=== PATIENT | female | born 1970 | race Caucasian/White ===

== ENCOUNTER 2019-10-10 11:58 | Inpatient (IN) | payer MEDICAID ==
[~2019-10-10] VITALS: Ht 165.1 cm; Wt 62.1 kg
[2019-10-10] MEDS ORDERED: LORAZEPAM 2MG/ML CPJ IV ONE (12:30)
[2019-10-10 13:46] LABS: BASOPHILS % 0.8 % (0.0-2.0); EOSINOPHILS % 0.3 % (0.0-5.0); HEMATOCRIT. 44.2 % (36.0-48.0); HEMOGLOBIN. 15.1 g/dL (12.0-16.0); LYMPHOCYTES % 19.3 % (20.0-50.0); MEAN CORPUSCULAR HEMOGLOBIN 29.7 pg (28.0-32.0); MEAN CORPUSCULAR VOLUME 86.7 fL (81.0-99.0); MEAN PLATELET VOLUME 7.5 fl (7.4-10.4); MONOCYTES % 8.6 % (2.0-8.0); PLATELET 425 x1000/uL (130-400); RED BLOOD CELL COUNT 5.09 mill/uL (4.2-5.4); RED CELL DISTRIBUTION WIDTH 14.6 % (11.6-14.6)
[2019-10-10 13:54] LABS: CHLORIDE 99 mEq/L (98-107)
[2019-10-10 13:58] LABS: ETHANOL BLOOD < 10 mg/dL
[2019-10-10 14:06] LABS: CARBAMAZEPINE < 0.5 ug/mL (4-12); PHENOBARBITAL < 2.1 ug/mL (15.0-40.0); VALPROIC ACID < 3.0 ug/mL (50-100)
[2019-10-10] MEDS ORDERED: CLONIDINE 0.1MG TABLET PO PRN (14:15)
[2019-10-10] MEDS ORDERED: ONDANSETRON HCL 4MG/2ML INJ IV PRN (14:15)
[2019-10-10] MEDS ORDERED: IPRATROPIUM/ALBUTEROL 0.5-3(2.5)MG/3ML NEB HHN PRN (14:15)
[2019-10-10 14:35] LABS: PHOSPHORUS 3.9 mg/dL (2.5-4.9)
[2019-10-10] MEDS ORDERED: LEVETIRACETAM 500MG PREMIX 100 ML IV NR (15:00)
[2019-10-10] MEDS: ENOXAPARIN 30MG/0.3ML SYR SUBCUT SCH (15:24)
[2019-10-10 17:26] LABS: CLARITY URINE CLEAR (CLEAR); COLOR URINE DARK YELLOW (YELLOW); KETONES URINE TRACE (NEGATIVE); LEUKOCYTE ESTERASE URINE TRACE (NEGATIVE); NITRITE URINE NEGATIVE (NEGATIVE); OCCULT BLOOD URINE NEGATIVE (NEGATIVE); PH URINE 5.5 (4.5-8.0); PROTEIN URINE 1+ (NEGATIVE); SPECIFIC GRAVITY URINE 1.021 (1.005-1.030)
[2019-10-10 18:19] LABS: *AMPHETAMINES SCREEN URINE NEGATIVE (NEGATIVE); *BARBITURATES SCREEN URINE NEGATIVE (NEGATIVE); *BENZODIAZEPINES SCREEN URINE PRESUMTIVE POSITIVE (NEGATIVE)
[2019-10-10 18:20] LABS: *COCAINE SCREEN URINE NEGATIVE (NEGATIVE); CANNABINOID URINE SCREEN NEGATIVE (NEGATIVE); METHADONE URINE SCREEN NEGATIVE (NEGATIVE); OPIATES URINE SCREEN NEGATIVE (NEGATIVE)
[2019-10-10 18:21] LABS: PHENCYCLIDINE URINE SCREEN NEGATIVE (NEGATIVE)
[2019-10-10 22:15] VITALS: BP 117/64
[2019-10-10 22:59] VITALS: BP 117/64
[2019-10-11] VITALS (29 sets, daily range): BP systolic 37–152; BP diastolic 13–103
[2019-10-11] MEDS: BLOOD SUGAR DIAGNOSTIC STRIP TEST SCH ×4 (05:59→21:12)
[2019-10-11] MEDS ORDERED: DEXTROSE 50% WATER 50ML SYRINGE IV PRN (06:00)
[2019-10-11] MEDS: INSULIN LISPRO 100 UNITS/ML SUBCUT SCH ×4 (06:20→21:00)
[2019-10-11 08:02] LABS: BASOPHILS % 0.6 % (0.0-2.0); EOSINOPHILS % 0.1 % (0.0-5.0); HEMATOCRIT. 41.1 % (36.0-48.0); LYMPHOCYTES % 17.2 % (20.0-50.0); MEAN CORPUSCULAR HEMOGLOBIN 29.4 pg (28.0-32.0); MEAN CORPUSCULAR VOLUME 86.4 fL (81.0-99.0); MEAN PLATELET VOLUME 7.7 fl (7.4-10.4); MONOCYTES % 10.1 % (2.0-8.0); PLATELET 461 x1000/uL (130-400); RED BLOOD CELL COUNT 4.76 mill/uL (4.2-5.4); RED CELL DISTRIBUTION WIDTH 14.8 % (11.6-14.6)
[2019-10-11] MEDS: ENOXAPARIN 30MG/0.3ML SYR SUBCUT SCH (14:24)
[2019-10-11] MEDS: LEVETIRACETAM 500MG PREMIX 100 ML IV SCH (16:09)
[2019-10-11] MEDS ORDERED: PHENYTOIN SODIUM 500 MG in SODIUM CHLORIDE 0.9% 50 ML IV NR (17:30)
[2019-10-11] MEDS: DEXT 5%/LACTATED RINGERS 1,000 ML IV SCH (18:27)
[2019-10-11] MEDS: LORAZEPAM 2MG/ML CPJ IV PRN ×2 (18:27→21:53)
[2019-10-11] MEDS ORDERED: LEVETIRACETAM 500MG PREMIX 100 ML IV SCH (21:00)
[2019-10-11] MEDS: PHENYTOIN SODIUM 100MG/2ML VIAL IV SCH (21:54)
[2019-10-12] VITALS (94 sets, daily range): BP systolic 77–148; BP diastolic 17–120
[2019-10-12] MEDS: LEVETIRACETAM 500MG PREMIX 100 ML IV SCH ×2 (02:12→08:42)
[2019-10-12 05:48] LABS: BASOPHILS % 0.4 % (0.0-2.0); HEMATOCRIT. 39.4 % (36.0-48.0); HEMOGLOBIN. 13.3 g/dL (12.0-16.0); LYMPHOCYTES % 14.5 % (20.0-50.0); MEAN CORPUSCULAR HEMOGLOBIN 29.5 pg (28.0-32.0); MEAN CORPUSCULAR VOLUME 87.6 fL (81.0-99.0); MEAN PLATELET VOLUME 7.4 fl (7.4-10.4); MONOCYTES % 9.7 % (2.0-8.0); NEUTROPHILS % 75.4 % (40.0-76.0); PLATELET 369 x1000/uL (130-400); RED CELL DISTRIBUTION WIDTH 14.6 % (11.6-14.6)
[2019-10-12 05:53] LABS: CHLORIDE 105 mEq/L (98-107)
[2019-10-12] MEDS: BLOOD SUGAR DIAGNOSTIC STRIP TEST SCH ×4 (06:38→21:19)
[2019-10-12] MEDS: INSULIN LISPRO 100 UNITS/ML SUBCUT SCH ×4 (06:38→21:00)
[2019-10-12] MEDS: PHENYTOIN SODIUM 100MG/2ML VIAL IV SCH ×3 (06:59→21:23)
[2019-10-12] MEDS: DEXT 5%/LACTATED RINGERS 1,000 ML IV SCH ×2 (09:10→21:23)
[2019-10-12] MEDS ORDERED: PIPERACILLIN/TAZOBACTAM 3.375 G in DEXT 5% WATER 100 ML IV SCH (15:00)
[2019-10-12 15:14] LABS: CLARITY URINE TURBID (CLEAR); COLOR URINE DARK YELLOW (YELLOW); KETONES URINE NEGATIVE (NEGATIVE); LEUKOCYTE ESTERASE URINE 3+ (NEGATIVE); NITRITE URINE POSITIVE (NEGATIVE); OCCULT BLOOD URINE 2+ (NEGATIVE); PH URINE 8.5 (4.5-8.0); PROTEIN URINE 2+ (NEGATIVE); SPECIFIC GRAVITY URINE 1.019 (1.005-1.030)
[2019-10-12 16:14] LABS: GLUCOSE CSF 58 mg/dL (41-75)
[2019-10-12] MEDS: ENOXAPARIN 30MG/0.3ML SYR SUBCUT SCH (16:49)
[2019-10-12] MEDS ORDERED: CEFTRIAXONE 2 G in DEXTROSE 5% WATER 50 ML IV SCH (17:00)
[2019-10-12] MEDS ORDERED: SODIUM CHLORIDE 0.9% 250 ML IV NR (18:00)
[2019-10-12] MEDS: VANCOMYCIN 1 G PREMIX 200 ML IV SCH (18:48)
[2019-10-12] MEDS: IPRATROPIUM/ALBUTEROL 0.5-3(2.5)MG/3ML NEB HHN SCH (20:21)
[2019-10-12] MEDS ORDERED: CEFTRIAXONE 2 G PREMIX 50 ML IV SCH (21:00)
[2019-10-12] MEDS ORDERED: LEVETIRACETAM 1,000 MG in SODIUM CHLORIDE 0.9% 100 ML IV SCH (21:00)
[2019-10-12] MEDS: LEVETIRACETAM 1,000 MG in SODIUM CHLORIDE 0.9% 100 ML IV SCH (23:43)
[2019-10-13] VITALS (70 sets, daily range): BP systolic 48–145; BP diastolic 17–109
[2019-10-13] MEDS: IPRATROPIUM/ALBUTEROL 0.5-3(2.5)MG/3ML NEB HHN SCH ×4 (02:00→20:09)
[2019-10-13 05:39] LABS: BASOPHILS % 0.2 % (0.0-2.0); HEMATOCRIT. 38.2 % (36.0-48.0); HEMOGLOBIN. 12.7 g/dL (12.0-16.0); LYMPHOCYTES % 7.9 % (20.0-50.0); MEAN CORPUSCULAR HEMOGLOBIN 29.3 pg (28.0-32.0); MEAN PLATELET VOLUME 7.8 fl (7.4-10.4); MONOCYTES % 7.1 % (2.0-8.0); NEUTROPHILS % 84.8 % (40.0-76.0); PLATELET 371 x1000/uL (130-400); RED BLOOD CELL COUNT 4.34 mill/uL (4.2-5.4); RED CELL DISTRIBUTION WIDTH 14.7 % (11.6-14.6)
[2019-10-13 05:49] LABS: CHLORIDE 108 mEq/L (98-107)
[2019-10-13] MEDS: VANCOMYCIN 1 G PREMIX 200 ML IV SCH (05:51)
[2019-10-13] MEDS: PHENYTOIN SODIUM 100MG/2ML VIAL IV SCH ×3 (05:51→21:17)
[2019-10-13] MEDS: INSULIN LISPRO 100 UNITS/ML SUBCUT SCH (06:17)
[2019-10-13] MEDS: BLOOD SUGAR DIAGNOSTIC STRIP TEST SCH (06:17)
[2019-10-13] MEDS: LORAZEPAM 2MG/ML CPJ IV PRN ×2 (07:49→21:35)
[2019-10-13] MEDS: LEVETIRACETAM 1,000 MG in SODIUM CHLORIDE 0.9% 100 ML IV SCH (09:36)
[2019-10-13] MEDS: PANTOPRAZOLE SODIUM 40 MG/VIAL IV SCH (09:40)
[2019-10-13] MEDS ORDERED: LIDOCAINE HCL 1% 20ML VIAL (Pyxis) INJ ONE (10:26)
[2019-10-13 11:21] LABS: INR 1.1; PROTHROMBIN TIME 11.9 sec (9.6-11.0)
[2019-10-13] MEDS ORDERED: KCL 20MEQ/100ML PREMIX 100 ML IV SCH (12:00)
[2019-10-13] MEDS: CEFTRIAXONE 2 G in DEXTROSE 5% WATER 50 ML IV SCH ×2 (12:19→22:45)
[2019-10-13] MEDS: DEXT 5%/LACTATED RINGERS 1,000 ML IV SCH ×2 (12:20→18:30)
[2019-10-13] MEDS: VANCOMYCIN 750 MG PREMIX 150 ML IV SCH ×2 (13:50→21:17)
[2019-10-13] MEDS ORDERED: PHENYTOIN SODIUM 800 MG in SODIUM CHLORIDE 0.9% 100 ML IV SCH (15:30)
[2019-10-13] MEDS: LEVETIRACETAM 1,500 MG in SODIUM CHLORIDE 0.9% 100 ML IV SCH (20:19)
[2019-10-13] MEDS ORDERED: SODIUM CHLORIDE 0.9% 500 ML IV ONE ×2 (21:15→23:15)
[2019-10-14] VITALS (47 sets, daily range): BP systolic 67–143; BP diastolic 32–90
[2019-10-14] MEDS: IPRATROPIUM/ALBUTEROL 0.5-3(2.5)MG/3ML NEB HHN SCH ×3 (02:13→20:38)
[2019-10-14] MEDS: LORAZEPAM 2MG/ML CPJ IV PRN (02:22)
[2019-10-14] MEDS: VANCOMYCIN 750 MG PREMIX 150 ML IV SCH (05:21)
[2019-10-14] MEDS: PHENYTOIN SODIUM 100MG/2ML VIAL IV SCH ×2 (05:21→12:07)
[2019-10-14] MEDS ORDERED: SODIUM CHLORIDE 0.9% 1,000 ML IV NR (05:45)
[2019-10-14 05:51] LABS: INR 1.1; PROTHROMBIN TIME 12.3 sec (9.6-11.0)
[2019-10-14 05:54] LABS: CHLORIDE 114 mEq/L (98-107)
[2019-10-14] MEDS ORDERED: POTASSIUM CHLORIDE INJ 40 MEQ in DEXT 5% WATER 500 ML IV NR (06:00)
[2019-10-14 06:02] LABS: BASOPHILS % 0.5 % (0.0-2.0); EOSINOPHILS % 0.7 % (0.0-5.0); LYMPHOCYTES % 19.9 % (20.0-50.0); MEAN CORPUSCULAR HEMOGLOBIN 29.4 pg (28.0-32.0); MEAN CORPUSCULAR VOLUME 88.6 fL (81.0-99.0); MEAN PLATELET VOLUME 8.1 fl (7.4-10.4); MONOCYTES % 8.7 % (2.0-8.0); NEUTROPHILS % 70.2 % (40.0-76.0); PLATELET 309 x1000/uL (130-400); RED BLOOD CELL COUNT 3.63 mill/uL (4.2-5.4); RED CELL DISTRIBUTION WIDTH 14.7 % (11.6-14.6)
[2019-10-14 06:02] LABS: PHOSPHORUS 2.6 mg/dL (2.5-4.9)
[2019-10-14 07:05] LABS: HEMATOCRIT. 32.1 % (36.0-48.0); HEMOGLOBIN. 10.7 g/dL (12.0-16.0)
[2019-10-14] MEDS: PANTOPRAZOLE SODIUM 40 MG/VIAL IV SCH (08:10)
[2019-10-14] MEDS: LEVETIRACETAM 1,500 MG in SODIUM CHLORIDE 0.9% 100 ML IV SCH ×2 (08:10→21:14)
[2019-10-14] MEDS: DEXT 5%/LACTATED RINGERS 1,000 ML IV SCH ×2 (08:10→15:05)
[2019-10-14] MEDS ORDERED: LIDOCAINE HCL/EPINEPHRINE 1%-EPI 1:100,000 20 ML VIAL ONE (08:22)
[2019-10-14] MEDS ORDERED: BACITRACIN 50,000 UNITS/VIAL ONE (08:22)
[2019-10-14] MEDS ORDERED: THROMBIN (BOVINE) 5000 UNITS/VIAL TOP ONE (08:22)
[2019-10-14] MEDS ORDERED: ROCURONIUM BROMIDE 10MG/ML VIAL 5ML IV ONE ×2 (08:29→09:59)
[2019-10-14] MEDS ORDERED: PROPOFOL 200MG/20ML VIAL IV ONE (08:29)
[2019-10-14] MEDS ORDERED: FENTANYL CITRATE/PF 50MCG/ML 2ML VIAL ONE (08:29)
[2019-10-14] MEDS ORDERED: CEFAZOLIN SODIUM 1000MG/VIAL ONE (08:30)
[2019-10-14] MEDS ORDERED: SODIUM CHLORIDE 0.9% 10ML VIAL ONE (08:30)
[2019-10-14] MEDS ORDERED: LIDOCAINE HCL/PF 1% 10 MG/ML 5ML VIAL ONE (08:30)
[2019-10-14] MEDS ORDERED: CALCIUM CHLORIDE 1GM/10ML SYR IV ONE (08:42)
[2019-10-14] MEDS ORDERED: PHENYLEPHRINE HCL 10 MG/ML 1ML (IV VIAL) IV ONE (08:43)
[2019-10-14] MEDS ORDERED: GLYCOPYRROLATE 0.2 MG/ML 2ML VIAL ONE (10:20)
[2019-10-14] MEDS ORDERED: NEOSTIGMINE METHYLSULFATE 1MG/ML 10 ML VIAL ONE (10:20)
[2019-10-14] MEDS ORDERED: ONDANSETRON HCL 4MG/2ML INJ ONE (10:25)
[2019-10-14] MEDS: NICARDIPINE 100 MG in SODIUM CHLORIDE 0.9% 60 ML IV PRN (11:34)
[2019-10-14] MEDS: CEFTRIAXONE 2 G in DEXTROSE 5% WATER 50 ML IV SCH ×2 (11:36→22:58)
[2019-10-14] MEDS ORDERED: NALOXONE HCL 0.4 MG/ML 1ML VIAL IV NR ×2 (12:00)
[2019-10-14] MEDS ORDERED: NALOXONE HCL 0.4 MG/ML 1ML VIAL ONE (12:04)
[2019-10-14 12:11] LABS: BG BASE EXCESS -1.2 mmol/L (-2.0-2.0); BG CARBOXYHEMOGLOBIN 0.3 % (0.5-1.5); BG DEOXYHEMOGLOBIN 0.5 % (0.0-5.0); BG FRACTION INSPIRED OXYGEN 100; BG HCO3 ACT 28.7 mmol/L (22.0-26.0); BG METHEMOGLOBIN 0.4 % (0.0-1.5); BG OXYGEN SATURATION 99.5 % (92.0-98.5); BG OXYHEMOGLOBIN 98.8 % (94.0-97.0); BG PCO2 75.9 mmHg (35.0-45.0); BG PH 7.196 (7.350-7.450); BG PO2 442.4 mmHg (75.0-100.0); BG SAMPLE SITE RIGHT BRACHIAL; BG TOTAL HEMOGLOBIN 13.3 g/dL (12.0-18.0); BG VENT MODE AMBU BAG
[2019-10-14 13:02] LABS: BG BASE EXCESS 0.7 mmol/L (-2.0-2.0); BG CARBOXYHEMOGLOBIN 0.2 % (0.5-1.5); BG DEOXYHEMOGLOBIN 0.7 % (0.0-5.0); BG FRACTION INSPIRED OXYGEN 60; BG HCO3 ACT 27.6 mmol/L (22.0-26.0); BG METHEMOGLOBIN 0.5 % (0.0-1.5); BG OXYGEN SATURATION 99.3 % (92.0-98.5); BG OXYHEMOGLOBIN 98.6 % (94.0-97.0); BG PH 7.326 (7.350-7.450); BG PO2 217.5 mmHg (75.0-100.0); BG SAMPLE SITE RIGHT BRACHIAL; BG TOTAL HEMOGLOBIN 12.7 g/dL (12.0-18.0); BG VENT MODE MASK - SIMPLE
[2019-10-14] MEDS ORDERED: KCL 20MEQ/100ML PREMIX 100 ML IV NR (18:00)
[2019-10-14] MEDS: MORPHINE SULFATE 2 MG/ML CPJ (NOT FOR IM USE) IV PRN (21:24)
[2019-10-15] VITALS (95 sets, daily range): BP systolic -6–162; BP diastolic -8–102
[2019-10-15] MEDS: IPRATROPIUM/ALBUTEROL 0.5-3(2.5)MG/3ML NEB HHN SCH ×4 (02:30→20:57)
[2019-10-15] MEDS ORDERED: SODIUM CHLORIDE 0.9% 500 ML IV ONE (03:30)
[2019-10-15 05:47] LABS: CHLORIDE 110 mEq/L (98-107)
[2019-10-15 05:48] LABS: BASOPHILS % 0.7 % (0.0-2.0); EOSINOPHILS % 2.2 % (0.0-5.0); HEMATOCRIT. 34.2 % (36.0-48.0); HEMOGLOBIN. 11.5 g/dL (12.0-16.0); LYMPHOCYTES % 15.6 % (20.0-50.0); MEAN CORPUSCULAR HEMOGLOBIN 29.7 pg (28.0-32.0); MEAN CORPUSCULAR VOLUME 87.9 fL (81.0-99.0); MEAN PLATELET VOLUME 7.7 fl (7.4-10.4); MONOCYTES % 8.3 % (2.0-8.0); NEUTROPHILS % 73.2 % (40.0-76.0); PLATELET 361 x1000/uL (130-400); RED BLOOD CELL COUNT 3.89 mill/uL (4.2-5.4); RED CELL DISTRIBUTION WIDTH 14.7 % (11.6-14.6)
[2019-10-15 05:54] LABS: PHOSPHORUS 1.8 mg/dL (2.5-4.9)
[2019-10-15] MEDS ORDERED: SODIUM CHLORIDE 0.9% 500 ML IV SCH (08:30)
[2019-10-15] MEDS: MORPHINE SULFATE 2 MG/ML CPJ (NOT FOR IM USE) IV PRN ×3 (09:18→21:25)
[2019-10-15] MEDS: LEVETIRACETAM 1,500 MG in SODIUM CHLORIDE 0.9% 100 ML IV SCH ×2 (09:18→22:47)
[2019-10-15] MEDS: PANTOPRAZOLE SODIUM 40 MG/VIAL IV SCH (09:18)
[2019-10-15 10:10] LABS: *CREATININE RANDOM URINE 57.8 mg/dL (Not Estab.); MICROALBUMIN RANDOM URINE 61.9 ug/mL (Not Estab.)
[2019-10-15] MEDS: DEXT 5%/LACTATED RINGERS 1,000 ML IV SCH ×3 (12:31→21:24)
[2019-10-15] MEDS: CEFTRIAXONE 2 G in DEXTROSE 5% WATER 50 ML IV SCH ×2 (12:31→22:48)
[2019-10-15] MEDS ORDERED: POTASSIUM CHLORIDE INJ 40 MEQ in DEXT 5% WATER 250 ML IV ONE (13:30)
[2019-10-15] MEDS: PHENYTOIN SODIUM 100MG/2ML VIAL IV SCH ×2 (14:20→21:24)
[2019-10-16] VITALS (81 sets, daily range): BP systolic -7–156; BP diastolic -11–112
[2019-10-16] MEDS: IPRATROPIUM/ALBUTEROL 0.5-3(2.5)MG/3ML NEB HHN SCH ×4 (00:45→20:35)
[2019-10-16] MEDS: MORPHINE SULFATE 2 MG/ML CPJ (NOT FOR IM USE) IV PRN ×5 (01:22→21:00)
[2019-10-16 06:04] LABS: CHLORIDE 110 mEq/L (98-107)
[2019-10-16] MEDS: DEXT 5%/LACTATED RINGERS 1,000 ML IV SCH ×2 (06:05→16:51)
[2019-10-16] MEDS: PHENYTOIN SODIUM 100MG/2ML VIAL IV SCH ×3 (06:05→21:00)
[2019-10-16 06:27] LABS: BASOPHILS % 0.7 % (0.0-2.0); EOSINOPHILS % 5.2 % (0.0-5.0); HEMOGLOBIN. 11.6 g/dL (12.0-16.0); LYMPHOCYTES % 21.8 % (20.0-50.0); MEAN CORPUSCULAR VOLUME 87.6 fL (81.0-99.0); MEAN PLATELET VOLUME 8.4 fl (7.4-10.4); NEUTROPHILS % 63.3 % (40.0-76.0); PLATELET 350 x1000/uL (130-400); RED BLOOD CELL COUNT 3.87 mill/uL (4.2-5.4); RED CELL DISTRIBUTION WIDTH 14.9 % (11.6-14.6)
[2019-10-16] MEDS: PANTOPRAZOLE SODIUM 40 MG/VIAL IV SCH (10:15)
[2019-10-16] MEDS: LEVETIRACETAM 1,500 MG in SODIUM CHLORIDE 0.9% 100 ML IV SCH ×2 (10:15→21:35)
[2019-10-16] MEDS: CEFTRIAXONE 2 G in DEXTROSE 5% WATER 50 ML IV SCH (12:26)
[2019-10-16] MEDS: NAFCILLIN SODIUM 2,000 MG in SODIUM CHLORIDE 0.9% 100 ML IV SCH ×2 (16:52→22:19)
[2019-10-16] MEDS ORDERED: MORPHINE SULFATE 2 MG/ML CPJ (NOT FOR IM USE) IV PRN (23:00)
[2019-10-17] VITALS (74 sets, daily range): BP systolic -2–169; BP diastolic -4–89
[2019-10-17] MEDS: MORPHINE SULFATE 2 MG/ML CPJ (NOT FOR IM USE) IV PRN ×5 (01:49→22:11)
[2019-10-17] MEDS: IPRATROPIUM/ALBUTEROL 0.5-3(2.5)MG/3ML NEB HHN SCH ×4 (01:50→20:45)
[2019-10-17 05:45] LABS: BASOPHILS % 0.8 % (0.0-2.0); EOSINOPHILS % 5.9 % (0.0-5.0); HEMOGLOBIN. 11.6 g/dL (12.0-16.0); LYMPHOCYTES % 21.8 % (20.0-50.0); MEAN CORPUSCULAR HEMOGLOBIN 29.8 pg (28.0-32.0); MEAN PLATELET VOLUME 8.9 fl (7.4-10.4); MONOCYTES % 11.2 % (2.0-8.0); NEUTROPHILS % 60.3 % (40.0-76.0); PLATELET 307 x1000/uL (130-400); RED CELL DISTRIBUTION WIDTH 14.8 % (11.6-14.6)
[2019-10-17 05:52] LABS: CHLORIDE 108 mEq/L (98-107)
[2019-10-17] MEDS: NAFCILLIN SODIUM 2,000 MG in SODIUM CHLORIDE 0.9% 100 ML IV SCH ×4 (06:09→22:14)
[2019-10-17] MEDS: PHENYTOIN SODIUM 100MG/2ML VIAL IV SCH ×3 (06:10→22:10)
[2019-10-17] MEDS: DEXT 5%/LACTATED RINGERS 1,000 ML IV SCH ×3 (06:10→17:54)
[2019-10-17] MEDS: LEVETIRACETAM 1,500 MG in SODIUM CHLORIDE 0.9% 100 ML IV SCH ×2 (08:49→22:10)
[2019-10-17] MEDS: PANTOPRAZOLE SODIUM 40 MG/VIAL IV SCH (08:49)
[2019-10-17 14:38] LABS: GLUCOSE CSF 53 mg/dL (41-75)
[2019-10-17] MEDS: NICARDIPINE 100 MG in SODIUM CHLORIDE 0.9% 60 ML IV PRN (16:25)
[2019-10-18] VITALS (90 sets, daily range): BP systolic 93–152; BP diastolic 51–85
[2019-10-18] MEDS: IPRATROPIUM/ALBUTEROL 0.5-3(2.5)MG/3ML NEB HHN SCH ×4 (01:15→20:48)
[2019-10-18] MEDS: PHENYTOIN SODIUM 100MG/2ML VIAL IV SCH ×3 (05:51→21:09)
[2019-10-18] MEDS: NAFCILLIN SODIUM 2,000 MG in SODIUM CHLORIDE 0.9% 100 ML IV SCH ×4 (05:51→23:12)
[2019-10-18 05:55] LABS: CHLORIDE 107 mEq/L (98-107)
[2019-10-18 06:09] LABS: BASOPHILS % 0.7 % (0.0-2.0); EOSINOPHILS % 0.6 % (0.0-5.0); HEMATOCRIT. 40.7 % (36.0-48.0); HEMOGLOBIN. 13.9 g/dL (12.0-16.0); LYMPHOCYTES % 10.3 % (20.0-50.0); MEAN CORPUSCULAR HEMOGLOBIN 29.5 pg (28.0-32.0); MEAN PLATELET VOLUME 7.6 fl (7.4-10.4); MONOCYTES % 7.2 % (2.0-8.0); NEUTROPHILS % 81.2 % (40.0-76.0); PLATELET 449 x1000/uL (130-400); RED BLOOD CELL COUNT 4.73 mill/uL (4.2-5.4); RED CELL DISTRIBUTION WIDTH 14.8 % (11.6-14.6)
[2019-10-18] MEDS: NICARDIPINE 100 MG in SODIUM CHLORIDE 0.9% 60 ML IV PRN (07:26)
[2019-10-18] MEDS ORDERED: KCL 20MEQ/100ML PREMIX 100 ML IV NR ×2 (08:30→14:00)
[2019-10-18] MEDS: DEXT 5%/LACTATED RINGERS 1,000 ML IV SCH ×2 (09:27→21:09)
[2019-10-18] MEDS: LEVETIRACETAM 1,500 MG in SODIUM CHLORIDE 0.9% 100 ML IV SCH ×2 (09:27→21:09)
[2019-10-18] MEDS: PANTOPRAZOLE SODIUM 40 MG/VIAL IV SCH (09:30)
[2019-10-18 17:52] LABS: CHLORIDE 110 mEq/L (98-107)
[2019-10-18] MEDS ORDERED: POTASSIUM CHLORIDE INJ 40 MEQ in DEXT 5% WATER 250 ML IV SCH (21:00)
[2019-10-19] VITALS (98 sets, daily range): BP systolic 99–149; BP diastolic 51–87
[2019-10-19] MEDS: IPRATROPIUM/ALBUTEROL 0.5-3(2.5)MG/3ML NEB HHN SCH ×4 (02:17→20:45)
[2019-10-19] MEDS: DEXT 5%/LACTATED RINGERS 1,000 ML IV SCH ×3 (03:45→23:25)
[2019-10-19] MEDS: NICARDIPINE 100 MG in SODIUM CHLORIDE 0.9% 60 ML IV PRN (04:00)
[2019-10-19] MEDS: PHENYTOIN SODIUM 100MG/2ML VIAL IV SCH ×3 (05:33→20:54)
[2019-10-19] MEDS: NAFCILLIN SODIUM 2,000 MG in SODIUM CHLORIDE 0.9% 100 ML IV SCH ×4 (05:33→23:26)
[2019-10-19 06:18] LABS: BASOPHILS % 0.8 % (0.0-2.0); HEMATOCRIT. 36.1 % (36.0-48.0); HEMOGLOBIN. 12.2 g/dL (12.0-16.0); LYMPHOCYTES % 9.3 % (20.0-50.0); MEAN CORPUSCULAR HEMOGLOBIN 29.3 pg (28.0-32.0); MEAN CORPUSCULAR VOLUME 86.3 fL (81.0-99.0); MEAN PLATELET VOLUME 7.3 fl (7.4-10.4); MONOCYTES % 7.9 % (2.0-8.0); PLATELET 409 x1000/uL (130-400); RED BLOOD CELL COUNT 4.19 mill/uL (4.2-5.4); RED CELL DISTRIBUTION WIDTH 14.9 % (11.6-14.6)
[2019-10-19 07:02] LABS: CHLORIDE 113 mEq/L (98-107)
[2019-10-19] MEDS: LEVETIRACETAM 1,500 MG in SODIUM CHLORIDE 0.9% 100 ML IV SCH ×2 (09:01→20:54)
[2019-10-19] MEDS: PANTOPRAZOLE SODIUM 40 MG/VIAL IV SCH (09:01)
[2019-10-19] MEDS ORDERED: POTASSIUM CHLORIDE INJ 40 MEQ in DEXT 5% WATER 250 ML IV SCH (11:00)
[2019-10-20] VITALS (113 sets, daily range): BP systolic 55–151; BP diastolic 31–97
[2019-10-20] MEDS: IPRATROPIUM/ALBUTEROL 0.5-3(2.5)MG/3ML NEB HHN SCH ×4 (01:30→20:03)
[2019-10-20 05:37] LABS: CHLORIDE 113 mEq/L (98-107)
[2019-10-20 05:38] LABS: BASOPHILS % 0.8 % (0.0-2.0); EOSINOPHILS % 4.7 % (0.0-5.0); HEMATOCRIT. 37.6 % (36.0-48.0); HEMOGLOBIN. 12.7 g/dL (12.0-16.0); LYMPHOCYTES % 17.6 % (20.0-50.0); MEAN CORPUSCULAR HEMOGLOBIN 29.4 pg (28.0-32.0); MEAN CORPUSCULAR VOLUME 87.2 fL (81.0-99.0); MEAN PLATELET VOLUME 7.7 fl (7.4-10.4); MONOCYTES % 7.3 % (2.0-8.0); NEUTROPHILS % 69.6 % (40.0-76.0); PLATELET 285 x1000/uL (130-400); RED BLOOD CELL COUNT 4.31 mill/uL (4.2-5.4); RED CELL DISTRIBUTION WIDTH 15.5 % (11.6-14.6)
[2019-10-20] MEDS: NAFCILLIN SODIUM 2,000 MG in SODIUM CHLORIDE 0.9% 100 ML IV SCH ×4 (05:57→22:36)
[2019-10-20] MEDS: PHENYTOIN SODIUM 100MG/2ML VIAL IV SCH ×3 (05:57→21:05)
[2019-10-20] MEDS: LEVETIRACETAM 1,500 MG in SODIUM CHLORIDE 0.9% 100 ML IV SCH ×2 (08:28→21:05)
[2019-10-20] MEDS: PANTOPRAZOLE SODIUM 40 MG/VIAL IV SCH (08:29)
[2019-10-20] MEDS ORDERED: POTASSIUM CHLORIDE INJ 40 MEQ in DEXT 5% WATER 250 ML IV SCH (12:00)
[2019-10-20] MEDS: NICARDIPINE 100 MG in SODIUM CHLORIDE 0.9% 60 ML IV PRN (20:00)
[2019-10-21] VITALS (102 sets, daily range): BP systolic 114–146; BP diastolic 58–98
[2019-10-21] MEDS: IPRATROPIUM/ALBUTEROL 0.5-3(2.5)MG/3ML NEB HHN SCH ×2 (01:55→08:15)
[2019-10-21] MEDS: NICARDIPINE 100 MG in SODIUM CHLORIDE 0.9% 60 ML IV PRN ×3 (05:01→20:49)
[2019-10-21] MEDS: NAFCILLIN SODIUM 2,000 MG in SODIUM CHLORIDE 0.9% 100 ML IV SCH ×4 (05:02→22:13)
[2019-10-21 05:15] LABS: HEMATOCRIT. 37.1 % (36.0-48.0); HEMOGLOBIN. 12.7 g/dL (12.0-16.0); MEAN CORPUSCULAR HEMOGLOBIN 29.7 pg (28.0-32.0); MEAN CORPUSCULAR VOLUME 86.5 fL (81.0-99.0); MEAN PLATELET VOLUME 6.9 fl (7.4-10.4); PLATELET 552 x1000/uL (130-400); RED BLOOD CELL COUNT 4.28 mill/uL (4.2-5.4); RED CELL DISTRIBUTION WIDTH 15.4 % (11.6-14.6)
[2019-10-21 05:22] LABS: CHLORIDE 111 mEq/L (98-107)
[2019-10-21] MEDS: PHENYTOIN SODIUM 100MG/2ML VIAL IV SCH ×3 (06:05→21:17)
[2019-10-21 07:19] LABS: PLATELET ESTIMATE INCREASED
[2019-10-21] MEDS: PANTOPRAZOLE SODIUM 40 MG/VIAL IV SCH (08:12)
[2019-10-21] MEDS: LEVETIRACETAM 1,500 MG in SODIUM CHLORIDE 0.9% 100 ML IV SCH ×2 (08:49→20:56)
[2019-10-21] MEDS ORDERED: LORAZEPAM 2MG/ML CPJ IV PRN (11:15)
[2019-10-21] MEDS: MORPHINE SULFATE 2 MG/ML CPJ (NOT FOR IM USE) IV PRN ×2 (11:29→22:13)
[2019-10-21] MEDS: DEXT 5%/LACTATED RINGERS 1,000 ML IV SCH (19:59)
[2019-10-22] VITALS (92 sets, daily range): BP systolic 112–148; BP diastolic 57–78
[2019-10-22] MEDS: NICARDIPINE 100 MG in SODIUM CHLORIDE 0.9% 60 ML IV PRN ×3 (02:02→17:02)
[2019-10-22] MEDS: MORPHINE SULFATE 2 MG/ML CPJ (NOT FOR IM USE) IV PRN (03:13)
[2019-10-22] MEDS: NAFCILLIN SODIUM 2,000 MG in SODIUM CHLORIDE 0.9% 100 ML IV SCH ×4 (04:01→23:01)
[2019-10-22] MEDS: PHENYTOIN SODIUM 100MG/2ML VIAL IV SCH ×3 (05:08→21:20)
[2019-10-22 05:28] LABS: BASOPHILS % 1.4 % (0.0-2.0); EOSINOPHILS % 1.1 % (0.0-5.0); HEMATOCRIT. 35.8 % (36.0-48.0); HEMOGLOBIN. 12.3 g/dL (12.0-16.0); LYMPHOCYTES % 19.8 % (20.0-50.0); MEAN CORPUSCULAR HEMOGLOBIN 29.4 pg (28.0-32.0); MEAN CORPUSCULAR VOLUME 85.6 fL (81.0-99.0); MEAN PLATELET VOLUME 6.7 fl (7.4-10.4); MONOCYTES % 9.1 % (2.0-8.0); NEUTROPHILS % 68.6 % (40.0-76.0); PLATELET 577 x1000/uL (130-400); RED BLOOD CELL COUNT 4.18 mill/uL (4.2-5.4); RED CELL DISTRIBUTION WIDTH 15.4 % (11.6-14.6)
[2019-10-22 07:58] LABS: CHLORIDE 116 mEq/L (98-107)
[2019-10-22 08:07] LABS: PHOSPHORUS 2.4 mg/dL (2.5-4.9)
[2019-10-22] MEDS ORDERED: KCL 20MEQ/100ML PREMIX 100 ML IV NR (08:30)
[2019-10-22] MEDS ORDERED: NA PHOS,M-B/NA PHOS,DI-BA ENEMA 118ML PR NR (08:45)
[2019-10-22] MEDS ORDERED: POTASSIUM CHLORIDE 20MEQ/PACKET PO NR (08:45)
[2019-10-22] MEDS ORDERED: BISACODYL 5MG TABLET PO NR (08:45)
[2019-10-22] MEDS: PANTOPRAZOLE SODIUM 40 MG/VIAL IV SCH (09:13)
[2019-10-22] MEDS: DEXT 5%/LACTATED RINGERS 1,000 ML IV SCH (09:13)
[2019-10-22] MEDS ORDERED: POTASSIUM PHOS,M-BASIC-D-BASIC 15 MMOL in DEXT 5% WATER 245 ML IV NR (09:30)
[2019-10-22] MEDS: LEVETIRACETAM 1,500 MG in SODIUM CHLORIDE 0.9% 100 ML IV SCH ×2 (09:46→22:01)
[2019-10-22] MEDS: ACETAMINOPHEN 650MG/20.3ML UDC PO PRN (11:05)
[2019-10-22] MEDS: SODIUM CHLORIDE 0.45% 1,000 ML IV SCH (11:13)
[2019-10-22] MEDS: DILTIAZEM HCL 60MG TABLET PO SCH ×3 (13:59→23:04)
[2019-10-23] VITALS (91 sets, daily range): BP systolic 113–151; BP diastolic 54–87
[2019-10-23] MEDS: SODIUM CHLORIDE 0.45% 1,000 ML IV SCH ×3 (00:20→22:00)
[2019-10-23] MEDS: NICARDIPINE 100 MG in SODIUM CHLORIDE 0.9% 60 ML IV PRN ×3 (00:23→21:52)
[2019-10-23] MEDS: NAFCILLIN SODIUM 2,000 MG in SODIUM CHLORIDE 0.9% 100 ML IV SCH ×4 (04:08→23:14)
[2019-10-23 05:17] LABS: EOSINOPHILS % 0.3 % (0.0-5.0); HEMATOCRIT. 35.9 % (36.0-48.0); HEMOGLOBIN. 12.2 g/dL (12.0-16.0); LYMPHOCYTES % 15.9 % (20.0-50.0); MEAN CORPUSCULAR HEMOGLOBIN 29.1 pg (28.0-32.0); MEAN CORPUSCULAR VOLUME 85.8 fL (81.0-99.0); MEAN PLATELET VOLUME 6.6 fl (7.4-10.4); MONOCYTES % 7.6 % (2.0-8.0); NEUTROPHILS % 75.2 % (40.0-76.0); PLATELET 531 x1000/uL (130-400); RED BLOOD CELL COUNT 4.19 mill/uL (4.2-5.4); RED CELL DISTRIBUTION WIDTH 16.1 % (11.6-14.6)
[2019-10-23 05:26] LABS: CHLORIDE 115 mEq/L (98-107)
[2019-10-23] MEDS: PHENYTOIN SODIUM 100MG/2ML VIAL IV SCH ×3 (05:58→21:51)
[2019-10-23] MEDS: DILTIAZEM HCL 60MG TABLET PO SCH (05:59)
[2019-10-23] MEDS: PANTOPRAZOLE SODIUM 40 MG/VIAL IV SCH (08:06)
[2019-10-23] MEDS: POTASSIUM CHLORIDE INJ 40 MEQ in DEXT 5% WATER 250 ML IV SCH ×2 (08:35→14:02)
[2019-10-23] MEDS: LEVETIRACETAM 1,500 MG in SODIUM CHLORIDE 0.9% 100 ML IV SCH ×2 (09:57→22:26)
[2019-10-23] MEDS: DILTIAZEM HCL 90MG TABLET PO SCH ×3 (12:02→23:14)
[2019-10-23] MEDS: CLONIDINE 0.1MG TABLET PO SCH ×2 (13:57→21:51)
[2019-10-24] VITALS (33 sets, daily range): BP systolic 109–140; BP diastolic 65–83
[2019-10-24] MEDS: SODIUM CHLORIDE 0.45% 1,000 ML IV SCH ×2 (03:00→16:03)
[2019-10-24] MEDS: NAFCILLIN SODIUM 2,000 MG in SODIUM CHLORIDE 0.9% 100 ML IV SCH ×4 (04:15→21:18)
[2019-10-24 05:52] LABS: BASOPHILS % 1.2 % (0.0-2.0); EOSINOPHILS % 2.5 % (0.0-5.0); HEMATOCRIT. 32.8 % (36.0-48.0); HEMOGLOBIN. 11.1 g/dL (12.0-16.0); LYMPHOCYTES % 18.7 % (20.0-50.0); MEAN CORPUSCULAR VOLUME 86.1 fL (81.0-99.0); MEAN PLATELET VOLUME 6.7 fl (7.4-10.4); MONOCYTES % 7.6 % (2.0-8.0); PLATELET 469 x1000/uL (130-400); RED BLOOD CELL COUNT 3.81 mill/uL (4.2-5.4)
[2019-10-24 06:02] LABS: CHLORIDE 114 mEq/L (98-107)
[2019-10-24] MEDS: PHENYTOIN SODIUM 100MG/2ML VIAL IV SCH ×3 (06:02→21:18)
[2019-10-24] MEDS: CLONIDINE 0.1MG TABLET PO SCH ×3 (06:03→21:29)
[2019-10-24] MEDS: DILTIAZEM HCL 90MG TABLET PO SCH ×3 (06:03→17:17)
[2019-10-24] MEDS: LEVETIRACETAM 1,500 MG in SODIUM CHLORIDE 0.9% 100 ML IV SCH ×2 (10:01→21:32)
[2019-10-24] MEDS: PANTOPRAZOLE SODIUM 40 MG/VIAL IV SCH (10:01)
[2019-10-24] MEDS ORDERED: POTASSIUM CHLORIDE 20MEQ/PACKET PO SCH (11:05)
[2019-10-24] MEDS ORDERED: INFLUENZA VIRUS VACCINE(AFLURIA) 0.5ML SYR IM ONE (20:15)
[2019-10-24] MEDS ORDERED: PNEUMOCOCCAL 23-VAL P-SAC VAC 0.5 ML IM ONE (20:15)
[2019-10-25] VITALS (12 sets, daily range): BP systolic 116–133; BP diastolic 75–85
[2019-10-25] MEDS: DILTIAZEM HCL 90MG TABLET PO SCH ×4 (00:52→17:12)
[2019-10-25] MEDS: NAFCILLIN SODIUM 2,000 MG in SODIUM CHLORIDE 0.9% 100 ML IV SCH ×3 (04:43→16:43)
[2019-10-25] MEDS: SODIUM CHLORIDE 0.45% 1,000 ML IV SCH (04:44)
[2019-10-25] MEDS: PHENYTOIN SODIUM 100MG/2ML VIAL IV SCH ×2 (04:47→14:48)
[2019-10-25] MEDS: CLONIDINE 0.1MG TABLET PO SCH ×2 (04:47→14:48)
[2019-10-25 06:53] LABS: BASOPHILS % 0.9 % (0.0-2.0); EOSINOPHILS % 4.1 % (0.0-5.0); HEMATOCRIT. 31.2 % (36.0-48.0); HEMOGLOBIN. 10.8 g/dL (12.0-16.0); LYMPHOCYTES % 15.8 % (20.0-50.0); MEAN CORPUSCULAR HEMOGLOBIN 29.5 pg (28.0-32.0); MEAN CORPUSCULAR VOLUME 85.5 fL (81.0-99.0); MEAN PLATELET VOLUME 6.8 fl (7.4-10.4); NEUTROPHILS % 72.2 % (40.0-76.0); PLATELET 414 x1000/uL (130-400); RED BLOOD CELL COUNT 3.65 mill/uL (4.2-5.4); RED CELL DISTRIBUTION WIDTH 15.7 % (11.6-14.6)
[2019-10-25 07:11] LABS: CHLORIDE 110 mEq/L (98-107)
[2019-10-25] MEDS ORDERED: PNEUMOCOCCAL 23-VAL P-SAC VAC 0.5 ML IM ONE (08:00)
[2019-10-25] MEDS ORDERED: INFLUENZA VIRUS VACCINE(AFLURIA) 0.5ML SYR IM ONE (08:00)
[2019-10-25] MEDS: PANTOPRAZOLE SODIUM 40 MG/VIAL IV SCH (08:09)
[2019-10-25] MEDS ORDERED: POTASSIUM CHLORIDE 20MEQ/PACKET PO SCH (08:15)
[2019-10-25] MEDS: LEVETIRACETAM 1,500 MG in SODIUM CHLORIDE 0.9% 100 ML IV SCH (09:01)
[2019-10-25] MEDS ORDERED: POTASSIUM CHLORIDE INJ 40 MEQ in DEXT 5% WATER 250 ML IV SCH (10:00)
[2019-10-25 11:03] LABS: TOTAL IRON BINDING CAPACITY 131 ug/dL (250-450)
[2019-10-26] VITALS (12 sets, daily range): BP systolic 125–155; BP diastolic 73–100
[2019-10-26] MEDS: LEVETIRACETAM 1,500 MG in SODIUM CHLORIDE 0.9% 100 ML IV SCH ×3 (00:19→22:42)
[2019-10-26] MEDS: SODIUM CHLORIDE 0.45% 1,000 ML IV SCH ×3 (00:20→21:44)
[2019-10-26] MEDS: PHENYTOIN SODIUM 100MG/2ML VIAL IV SCH ×4 (00:22→21:43)
[2019-10-26] MEDS: DILTIAZEM HCL 90MG TABLET PO SCH ×3 (00:22→12:00)
[2019-10-26] MEDS: CLONIDINE 0.1MG TABLET PO SCH ×4 (00:23→21:43)
[2019-10-26] MEDS: NAFCILLIN SODIUM 2,000 MG in SODIUM CHLORIDE 0.9% 100 ML IV SCH ×3 (01:02→12:49)
[2019-10-26 08:01] LABS: EOSINOPHILS % 3.1 % (0.0-5.0); HEMATOCRIT. 31.6 % (36.0-48.0); HEMOGLOBIN. 10.9 g/dL (12.0-16.0); LYMPHOCYTES % 18.3 % (20.0-50.0); MEAN CORPUSCULAR HEMOGLOBIN 29.7 pg (28.0-32.0); MEAN CORPUSCULAR VOLUME 86.3 fL (81.0-99.0); MONOCYTES % 7.9 % (2.0-8.0); NEUTROPHILS % 69.7 % (40.0-76.0); PLATELET 414 x1000/uL (130-400); RED BLOOD CELL COUNT 3.67 mill/uL (4.2-5.4); RED CELL DISTRIBUTION WIDTH 16.1 % (11.6-14.6)
[2019-10-26 08:11] LABS: INR 0.9; PARTIAL THROMBOPLASTIN TIME 28.3 sec (23.4-31.0)
[2019-10-26 08:12] LABS: CHLORIDE 111 mEq/L (98-107)
[2019-10-26] MEDS: PANTOPRAZOLE SODIUM 40 MG/VIAL IV SCH (09:16)
[2019-10-26] MEDS ORDERED: BACTERIOSTATIC SODIUM CHLORIDE 0.9% 30ML VIAL IJ ONE (11:41)
[2019-10-26] MEDS ORDERED: KCL 20MEQ/100ML PREMIX 100 ML IV ONE (13:30)
[2019-10-26] MEDS ORDERED: POTASSIUM CHLORIDE INJ 40 MEQ in DEXT 5% WATER 250 ML IV NR (14:30)
[2019-10-26] MEDS ORDERED: MIDAZOLAM HCL 5 MG/5 ML VIAL ONE (15:59)
[2019-10-26] MEDS ORDERED: MIDAZOLAM HCL 5 MG/5 ML VIAL IV PRN (15:59)
[2019-10-26] MEDS ORDERED: FENTANYL CITRATE/PF 50MCG/ML 2ML VIAL IV PRN (15:59)
[2019-10-26] MEDS ORDERED: FENTANYL CITRATE/PF 50MCG/ML 2ML VIAL ONE (15:59)
[2019-10-26] MEDS: METOCLOPRAMIDE HCL 10MG/2ML VIAL IV SCH (18:22)
[2019-10-26] MEDS: SUCRALFATE 1 G/10 ML UDC GT SCH (18:22)
[2019-10-27] VITALS (11 sets, daily range): BP systolic 131–156; BP diastolic 81–96
[2019-10-27] MEDS: METOCLOPRAMIDE HCL 10MG/2ML VIAL IV SCH ×4 (01:01→17:54)
[2019-10-27] MEDS: SUCRALFATE 1 G/10 ML UDC GT SCH ×4 (01:01→17:54)
[2019-10-27] MEDS: PHENYTOIN SODIUM 100MG/2ML VIAL IV SCH ×3 (05:20→22:37)
[2019-10-27] MEDS: CLONIDINE 0.1MG TABLET PO SCH ×3 (05:20→22:37)
[2019-10-27] MEDS: DILTIAZEM HCL 90MG TABLET PO SCH ×4 (06:22→17:54)
[2019-10-27] MEDS: NAFCILLIN SODIUM 2,000 MG in SODIUM CHLORIDE 0.9% 100 ML IV SCH ×5 (06:48→22:37)
[2019-10-27 07:24] LABS: BASOPHILS % 1.1 % (0.0-2.0); EOSINOPHILS % 1.3 % (0.0-5.0); HEMATOCRIT. 29.7 % (36.0-48.0); HEMOGLOBIN. 10.1 g/dL (12.0-16.0); LYMPHOCYTES % 14.7 % (20.0-50.0); MEAN CORPUSCULAR HEMOGLOBIN 29.5 pg (28.0-32.0); MEAN CORPUSCULAR VOLUME 86.6 fL (81.0-99.0); MEAN PLATELET VOLUME 7.1 fl (7.4-10.4); MONOCYTES % 6.8 % (2.0-8.0); NEUTROPHILS % 76.1 % (40.0-76.0); PLATELET 375 x1000/uL (130-400); RED BLOOD CELL COUNT 3.43 mill/uL (4.2-5.4)
[2019-10-27 07:28] LABS: CHLORIDE 108 mEq/L (98-107)
[2019-10-27] MEDS: PANTOPRAZOLE SODIUM 40 MG/VIAL IV SCH (09:19)
[2019-10-27] MEDS: LEVETIRACETAM 1,500 MG in SODIUM CHLORIDE 0.9% 100 ML IV SCH ×2 (09:26→20:52)
[2019-10-27] MEDS ORDERED: POTASSIUM CHLORIDE INJ 40 MEQ in DEXT 5% WATER 250 ML IV SCH (11:00)
[2019-10-27] MEDS: POTASSIUM CHLORIDE 20MEQ TABLET SR PO SCH (20:52)
[2019-10-28] VITALS (13 sets, daily range): BP systolic 126–164; BP diastolic 72–98
[2019-10-28] MEDS: SUCRALFATE 1 G/10 ML UDC GT SCH ×4 (00:27→18:00)
[2019-10-28] MEDS: POTASSIUM CHLORIDE 20MEQ TABLET SR PO SCH ×2 (00:27→16:23)
[2019-10-28] MEDS: METOCLOPRAMIDE HCL 10MG/2ML VIAL IV SCH (00:27)
[2019-10-28] MEDS: DILTIAZEM HCL 90MG TABLET PO SCH ×3 (00:27→12:41)
[2019-10-28] MEDS: PHENYTOIN SODIUM 100MG/2ML VIAL IV SCH ×3 (05:41→21:35)
[2019-10-28] MEDS: NAFCILLIN SODIUM 2,000 MG in SODIUM CHLORIDE 0.9% 100 ML IV SCH ×3 (05:41→16:12)
[2019-10-28] MEDS: CLONIDINE 0.1MG TABLET PO SCH ×3 (05:42→21:36)
[2019-10-28] MEDS: SODIUM CHLORIDE 0.45% 1,000 ML IV SCH ×2 (05:55→13:40)
[2019-10-28 06:03] LABS: CHLORIDE 113 mEq/L (98-107)
[2019-10-28] MEDS: LEVETIRACETAM 1,500 MG in SODIUM CHLORIDE 0.9% 100 ML IV SCH ×2 (09:52→21:35)
[2019-10-28] MEDS: PANTOPRAZOLE SODIUM 40 MG/VIAL IV SCH (09:52)
[2019-10-28] MEDS: ACETAMINOPHEN 650MG/20.3ML UDC PO PRN (09:53)
[2019-10-28] MEDS: DILTIAZEM HCL 120MG CAPSULE CD 24HR PO SCH ×2 (16:22→21:36)
[2019-10-29] VITALS (10 sets, daily range): BP systolic 103–142; BP diastolic 57–78
[2019-10-29] MEDS: SODIUM CHLORIDE 0.45% 1,000 ML IV SCH ×2 (00:23→16:20)
[2019-10-29] MEDS: SUCRALFATE 1 G/10 ML UDC GT SCH ×5 (00:23→23:51)
[2019-10-29] MEDS: NAFCILLIN SODIUM 2,000 MG in SODIUM CHLORIDE 0.9% 100 ML IV SCH ×5 (01:08→21:56)
[2019-10-29] MEDS: CLONIDINE 0.1MG TABLET PO SCH ×3 (05:23→21:58)
[2019-10-29] MEDS: PHENYTOIN SODIUM 100MG/2ML VIAL IV SCH ×3 (05:23→21:57)
[2019-10-29 05:48] LABS: CHLORIDE 112 mEq/L (98-107)
[2019-10-29 05:54] LABS: BASOPHILS % 1.4 % (0.0-2.0); EOSINOPHILS % 3.2 % (0.0-5.0); HEMATOCRIT. 29.9 % (36.0-48.0); HEMOGLOBIN. 10.3 g/dL (12.0-16.0); LYMPHOCYTES % 17.4 % (20.0-50.0); MEAN CORPUSCULAR HEMOGLOBIN 29.8 pg (28.0-32.0); MEAN CORPUSCULAR VOLUME 86.8 fL (81.0-99.0); MEAN PLATELET VOLUME 7.1 fl (7.4-10.4); PLATELET 400 x1000/uL (130-400); RED BLOOD CELL COUNT 3.45 mill/uL (4.2-5.4); RED CELL DISTRIBUTION WIDTH 16.2 % (11.6-14.6)
[2019-10-29] MEDS: PANTOPRAZOLE SODIUM 40 MG/VIAL IV SCH (09:01)
[2019-10-29] MEDS: LEVETIRACETAM 1,500 MG in SODIUM CHLORIDE 0.9% 100 ML IV SCH ×2 (09:01→23:53)
[2019-10-29] MEDS: POTASSIUM CHLORIDE 20MEQ TABLET SR PO SCH (09:01)
[2019-10-29] MEDS: DILTIAZEM HCL 60MG TABLET GT SCH ×3 (10:00→23:48)
[2019-10-29] MEDS: METOCLOPRAMIDE HCL 10MG/2ML VIAL IV SCH ×2 (18:08→23:51)
[2019-10-30] VITALS (7 sets, daily range): BP systolic 122–132; BP diastolic 70–78
[2019-10-30] MEDS: SODIUM CHLORIDE 0.45% 1,000 ML IV SCH ×3 (05:40→19:00)
[2019-10-30 05:49] LABS: CHLORIDE 111 mEq/L (98-107)
[2019-10-30] MEDS: DILTIAZEM HCL 60MG TABLET GT SCH ×4 (05:50→23:45)
[2019-10-30] MEDS: SUCRALFATE 1 G/10 ML UDC GT SCH ×4 (05:50→23:44)
[2019-10-30] MEDS: METOCLOPRAMIDE HCL 10MG/2ML VIAL IV SCH ×4 (05:50→23:44)
[2019-10-30] MEDS: CLONIDINE 0.1MG TABLET PO SCH ×3 (05:51→21:34)
[2019-10-30] MEDS: NAFCILLIN SODIUM 2,000 MG in SODIUM CHLORIDE 0.9% 100 ML IV SCH ×4 (05:52→21:31)
[2019-10-30] MEDS: PHENYTOIN SODIUM 100MG/2ML VIAL IV SCH ×3 (05:52→21:34)
[2019-10-30 06:10] LABS: BASOPHILS % 2.1 % (0.0-2.0); EOSINOPHILS % 4.7 % (0.0-5.0); HEMATOCRIT. 33.8 % (36.0-48.0); HEMOGLOBIN. 11.7 g/dL (12.0-16.0); LYMPHOCYTES % 23.7 % (20.0-50.0); MEAN CORPUSCULAR HEMOGLOBIN 29.7 pg (28.0-32.0); MEAN CORPUSCULAR VOLUME 85.9 fL (81.0-99.0); MEAN PLATELET VOLUME 7.1 fl (7.4-10.4); MONOCYTES % 8.4 % (2.0-8.0); NEUTROPHILS % 61.1 % (40.0-76.0); PLATELET 482 x1000/uL (130-400); RED BLOOD CELL COUNT 3.93 mill/uL (4.2-5.4); RED CELL DISTRIBUTION WIDTH 16.3 % (11.6-14.6)
[2019-10-30] MEDS: PANTOPRAZOLE SODIUM 40 MG/VIAL IV SCH (09:22)
[2019-10-30] MEDS: LEVETIRACETAM 1,500 MG in SODIUM CHLORIDE 0.9% 100 ML IV SCH ×2 (09:22→21:30)
[2019-10-30] MEDS: POTASSIUM CHLORIDE 20MEQ TABLET SR PO SCH (09:23)
[2019-10-31] VITALS (12 sets, daily range): BP systolic 108–153; BP diastolic 61–99
[2019-10-31] MEDS: NAFCILLIN SODIUM 2,000 MG in SODIUM CHLORIDE 0.9% 100 ML IV SCH ×4 (04:51→23:15)
[2019-10-31] MEDS: CLONIDINE 0.1MG TABLET PO SCH ×3 (04:58→21:41)
[2019-10-31] MEDS: DILTIAZEM HCL 60MG TABLET GT SCH ×4 (04:58→23:27)
[2019-10-31] MEDS: METOCLOPRAMIDE HCL 10MG/2ML VIAL IV SCH ×4 (04:59→23:26)
[2019-10-31] MEDS: PHENYTOIN SODIUM 100MG/2ML VIAL IV SCH ×3 (04:59→21:40)
[2019-10-31] MEDS: SUCRALFATE 1 G/10 ML UDC GT SCH ×3 (04:59→17:34)
[2019-10-31 05:58] LABS: CHLORIDE 109 mEq/L (98-107)
[2019-10-31 06:00] LABS: BASOPHILS % 1.8 % (0.0-2.0); EOSINOPHILS % 4.6 % (0.0-5.0); HEMATOCRIT. 31.2 % (36.0-48.0); HEMOGLOBIN. 10.5 g/dL (12.0-16.0); LYMPHOCYTES % 20.4 % (20.0-50.0); MEAN CORPUSCULAR HEMOGLOBIN 29.2 pg (28.0-32.0); MEAN CORPUSCULAR VOLUME 86.5 fL (81.0-99.0); MONOCYTES % 9.5 % (2.0-8.0); NEUTROPHILS % 63.7 % (40.0-76.0); PLATELET 486 x1000/uL (130-400); RED BLOOD CELL COUNT 3.61 mill/uL (4.2-5.4); RED CELL DISTRIBUTION WIDTH 16.5 % (11.6-14.6)
[2019-10-31] MEDS ORDERED: POTASSIUM CHLORIDE 20MEQ TABLET SR PO SCH (08:45)
[2019-10-31] MEDS: PANTOPRAZOLE SODIUM 40 MG/VIAL IV SCH (09:52)
[2019-10-31] MEDS: LEVETIRACETAM 1,500 MG in SODIUM CHLORIDE 0.9% 100 ML IV SCH ×2 (09:53→22:26)
[2019-10-31] MEDS: POTASSIUM CHLORIDE 20MEQ TABLET SR PO SCH (10:03)
[2019-10-31] MEDS: SODIUM CHLORIDE 0.45% 1,000 ML IV SCH ×2 (12:10→21:40)
[2019-11-01] VITALS (11 sets, daily range): BP systolic 106–139; BP diastolic 59–90
[2019-11-01] MEDS: CLONIDINE 0.1MG TABLET PO SCH ×3 (05:05→21:03)
[2019-11-01] MEDS: PHENYTOIN SODIUM 100MG/2ML VIAL IV SCH ×3 (05:05→21:03)
[2019-11-01] MEDS: METOCLOPRAMIDE HCL 10MG/2ML VIAL IV SCH ×4 (05:05→23:02)
[2019-11-01] MEDS: DILTIAZEM HCL 60MG TABLET GT SCH ×3 (05:06→17:03)
[2019-11-01 06:38] LABS: BASOPHILS % 2.2 % (0.0-2.0); EOSINOPHILS % 5.3 % (0.0-5.0); HEMATOCRIT. 32.5 % (36.0-48.0); HEMOGLOBIN. 10.9 g/dL (12.0-16.0); LYMPHOCYTES % 21.6 % (20.0-50.0); MEAN CORPUSCULAR HEMOGLOBIN 29.4 pg (28.0-32.0); MEAN CORPUSCULAR VOLUME 87.3 fL (81.0-99.0); MEAN PLATELET VOLUME 7.1 fl (7.4-10.4); MONOCYTES % 10.5 % (2.0-8.0); NEUTROPHILS % 60.4 % (40.0-76.0); PLATELET 498 x1000/uL (130-400); RED BLOOD CELL COUNT 3.72 mill/uL (4.2-5.4); RED CELL DISTRIBUTION WIDTH 17.5 % (11.6-14.6)
[2019-11-01 06:43] LABS: CHLORIDE 111 mEq/L (98-107)
[2019-11-01] MEDS: PANTOPRAZOLE SODIUM 40 MG/VIAL IV SCH (09:36)
[2019-11-01] MEDS: POTASSIUM CHLORIDE 20MEQ TABLET SR PO SCH (09:36)
[2019-11-01] MEDS: LEVETIRACETAM 1,500 MG in SODIUM CHLORIDE 0.9% 100 ML IV SCH ×2 (09:50→20:49)
[2019-11-01] MEDS ORDERED: POTASSIUM CHLORIDE 20MEQ/PACKET PO SCH (13:15)
[2019-11-01] MEDS: SODIUM CHLORIDE 0.45% 1,000 ML IV SCH (17:03)
[2019-11-02] VITALS: BP 153/88
[2019-11-02] MEDS: DILTIAZEM HCL 60MG TABLET GT SCH ×5 (00:51→23:04)
[2019-11-02 04:00] VITALS: BP 137/77
[2019-11-02] MEDS: PHENYTOIN SODIUM 100MG/2ML VIAL IV SCH ×3 (05:06→22:39)
[2019-11-02] MEDS: METOCLOPRAMIDE HCL 10MG/2ML VIAL IV SCH ×4 (05:06→23:03)
[2019-11-02] MEDS: CLONIDINE 0.1MG TABLET PO SCH ×3 (05:08→22:39)
[2019-11-02 05:58] LABS: CHLORIDE 109 mEq/L (98-107)
[2019-11-02 06:21] LABS: BASOPHILS % 1.6 % (0.0-2.0); EOSINOPHILS % 4.9 % (0.0-5.0); HEMOGLOBIN. 11.2 g/dL (12.0-16.0); LYMPHOCYTES % 20.2 % (20.0-50.0); MEAN CORPUSCULAR HEMOGLOBIN 29.5 pg (28.0-32.0); MEAN CORPUSCULAR VOLUME 86.8 fL (81.0-99.0); MONOCYTES % 10.5 % (2.0-8.0); NEUTROPHILS % 62.8 % (40.0-76.0); PLATELET 534 x1000/uL (130-400); RED CELL DISTRIBUTION WIDTH 16.8 % (11.6-14.6)
[2019-11-02 08:00] VITALS: BP 146/76
[2019-11-02] MEDS: PANTOPRAZOLE SODIUM 40 MG/VIAL IV SCH (08:27)
[2019-11-02] MEDS: LEVETIRACETAM 1,500 MG in SODIUM CHLORIDE 0.9% 100 ML IV SCH ×2 (08:27→20:45)
[2019-11-02] MEDS: POTASSIUM CHLORIDE 20MEQ TABLET SR PO SCH (08:27)
[2019-11-02] MEDS: SODIUM CHLORIDE 0.45% 1,000 ML IV SCH ×3 (08:28→22:38)
[2019-11-02 12:00] VITALS: BP 140/78
[2019-11-02 16:00] VITALS: BP 131/77
[2019-11-02 20:00] VITALS: BP 135/87
[2019-11-03] VITALS: BP 103/62
[2019-11-03 04:00] VITALS: BP 120/75
[2019-11-03] MEDS: PHENYTOIN SODIUM 100MG/2ML VIAL IV SCH ×3 (05:03→22:26)
[2019-11-03] MEDS: METOCLOPRAMIDE HCL 10MG/2ML VIAL IV SCH ×3 (05:03→17:02)
[2019-11-03] MEDS: DILTIAZEM HCL 60MG TABLET GT SCH ×3 (05:04→17:02)
[2019-11-03] MEDS: CLONIDINE 0.1MG TABLET PO SCH ×3 (05:05→22:27)
[2019-11-03 06:37] LABS: EOSINOPHILS % 3.3 % (0.0-5.0); HEMATOCRIT. 37.4 % (36.0-48.0); LYMPHOCYTES % 19.3 % (20.0-50.0); MEAN CORPUSCULAR HEMOGLOBIN 29.9 pg (28.0-32.0); MEAN CORPUSCULAR VOLUME 86.2 fL (81.0-99.0); MEAN PLATELET VOLUME 6.9 fl (7.4-10.4); MONOCYTES % 9.6 % (2.0-8.0); NEUTROPHILS % 65.8 % (40.0-76.0); PLATELET 587 x1000/uL (130-400); RED BLOOD CELL COUNT 4.34 mill/uL (4.2-5.4); RED CELL DISTRIBUTION WIDTH 16.5 % (11.6-14.6)
[2019-11-03 06:43] LABS: CHLORIDE 108 mEq/L (98-107)
[2019-11-03 08:00] VITALS: BP 128/76
[2019-11-03] MEDS: LEVETIRACETAM 1,500 MG in SODIUM CHLORIDE 0.9% 100 ML IV SCH ×2 (08:05→22:26)
[2019-11-03] MEDS: POTASSIUM CHLORIDE 20MEQ TABLET SR PO SCH (08:05)
[2019-11-03] MEDS: PANTOPRAZOLE SODIUM 40 MG/VIAL IV SCH (08:05)
[2019-11-03 12:00] VITALS: BP 155/68
[2019-11-03] MEDS: SODIUM CHLORIDE 0.45% 1,000 ML IV SCH ×2 (14:23→16:20)
[2019-11-03 16:00] VITALS: BP 129/65
[2019-11-03 20:00] VITALS: BP 120/82
[2019-11-04] VITALS: BP 110/72
[2019-11-04] MEDS: METOCLOPRAMIDE HCL 10MG/2ML VIAL IV SCH ×4 (00:42→18:02)
[2019-11-04] MEDS: DILTIAZEM HCL 60MG TABLET GT SCH ×3 (00:43→11:41)
[2019-11-04] MEDS: PHENYTOIN SODIUM 100MG/2ML VIAL IV SCH ×3 (05:25→21:57)
[2019-11-04] MEDS: CLONIDINE 0.1MG TABLET PO SCH ×3 (05:28→21:57)
[2019-11-04] MEDS: SODIUM CHLORIDE 0.45% 1,000 ML IV SCH ×2 (05:29→19:00)
[2019-11-04 06:33] LABS: CHLORIDE 107 mEq/L (98-107)
[2019-11-04 06:34] LABS: EOSINOPHILS % 3.6 % (0.0-5.0); HEMATOCRIT. 31.7 % (36.0-48.0); HEMOGLOBIN. 10.9 g/dL (12.0-16.0); LYMPHOCYTES % 15.8 % (20.0-50.0); MEAN CORPUSCULAR HEMOGLOBIN 29.8 pg (28.0-32.0); MEAN CORPUSCULAR VOLUME 86.3 fL (81.0-99.0); MEAN PLATELET VOLUME 6.8 fl (7.4-10.4); MONOCYTES % 8.9 % (2.0-8.0); NEUTROPHILS % 69.7 % (40.0-76.0); PLATELET 528 x1000/uL (130-400); RED BLOOD CELL COUNT 3.67 mill/uL (4.2-5.4); RED CELL DISTRIBUTION WIDTH 16.9 % (11.6-14.6)
[2019-11-04 08:14] VITALS: BP 110/65
[2019-11-04] MEDS: POTASSIUM CHLORIDE 20MEQ TABLET SR PO SCH (08:26)
[2019-11-04] MEDS: LEVETIRACETAM 1,500 MG in SODIUM CHLORIDE 0.9% 100 ML IV SCH ×2 (08:26→21:57)
[2019-11-04] MEDS: PANTOPRAZOLE SODIUM 40 MG/VIAL IV SCH (08:26)
[2019-11-04 11:45] VITALS: BP 98/58
[2019-11-04 16:05] VITALS: BP 98/57
[2019-11-04] MEDS: DILTIAZEM HCL 90MG TABLET GT SCH (18:02)
[2019-11-04 20:00] VITALS: BP 103/61
[2019-11-05] VITALS (7 sets, daily range): BP systolic 117–141; BP diastolic 54–96
[2019-11-05] MEDS: DILTIAZEM HCL 90MG TABLET GT SCH ×5 (00:46→23:38)
[2019-11-05] MEDS: METOCLOPRAMIDE HCL 10MG/2ML VIAL IV SCH ×2 (00:47→05:28)
[2019-11-05] MEDS: PHENYTOIN SODIUM 100MG/2ML VIAL IV SCH ×3 (05:27→21:54)
[2019-11-05] MEDS: CLONIDINE 0.1MG TABLET PO SCH ×3 (05:27→21:55)
[2019-11-05] MEDS: LEVETIRACETAM 1,500 MG in SODIUM CHLORIDE 0.9% 100 ML IV SCH (08:42)
[2019-11-05] MEDS: PANTOPRAZOLE SODIUM 40 MG/VIAL IV SCH (08:42)
[2019-11-05] MEDS: POTASSIUM CHLORIDE 20MEQ TABLET SR PO SCH (08:42)
[2019-11-05] MEDS: METOCLOPRAMIDE 10MG/10 ML UDC PO SCH ×3 (12:08→21:54)
[2019-11-05] MEDS: LEVETIRACETAM 500MG/5ML CUP PO SCH (21:54)
[2019-11-06 06:00] VITALS: BP 105/65
[2019-11-06] MEDS: DILTIAZEM HCL 90MG TABLET GT SCH ×3 (06:00→18:14)
[2019-11-06] MEDS: CLONIDINE 0.1MG TABLET PO SCH ×3 (06:00→21:42)
[2019-11-06] MEDS: PHENYTOIN SODIUM 100MG/2ML VIAL IV SCH ×3 (06:08→21:42)
[2019-11-06 07:57] LABS: BASOPHILS % 1.9 % (0.0-2.0); EOSINOPHILS % 4.9 % (0.0-5.0); HEMATOCRIT. 32.8 % (36.0-48.0); HEMOGLOBIN. 11.3 g/dL (12.0-16.0); LYMPHOCYTES % 23.5 % (20.0-50.0); MEAN CORPUSCULAR HEMOGLOBIN 29.8 pg (28.0-32.0); MEAN CORPUSCULAR VOLUME 86.4 fL (81.0-99.0); MEAN PLATELET VOLUME 6.7 fl (7.4-10.4); NEUTROPHILS % 58.7 % (40.0-76.0); PLATELET 487 x1000/uL (130-400); RED CELL DISTRIBUTION WIDTH 17.2 % (11.6-14.6)
[2019-11-06 08:00] VITALS: BP 110/46
[2019-11-06] MEDS: POTASSIUM CHLORIDE 20MEQ TABLET SR PO SCH (09:03)
[2019-11-06] MEDS: METOCLOPRAMIDE 10MG/10 ML UDC PO SCH ×4 (09:03→21:41)
[2019-11-06] MEDS: LEVETIRACETAM 500MG/5ML CUP PO SCH ×2 (09:03→21:41)
[2019-11-06] MEDS: PANTOPRAZOLE 40MG DR TABLET PO SCH (09:05)
[2019-11-06 12:00] VITALS: BP 116/54
[2019-11-06 16:00] VITALS: BP 118/71
[2019-11-06 20:00] VITALS: BP 129/42
[2019-11-07] VITALS: BP 133/65
[2019-11-07] MEDS: DILTIAZEM HCL 90MG TABLET GT SCH ×5 (01:01→23:30)
[2019-11-07 04:00] VITALS: BP 114/80
[2019-11-07] MEDS: CLONIDINE 0.1MG TABLET PO SCH ×3 (05:26→21:04)
[2019-11-07] MEDS: PHENYTOIN SODIUM 100MG/2ML VIAL IV SCH ×3 (05:27→21:03)
[2019-11-07 08:00] VITALS: BP 106/69
[2019-11-07] MEDS: LEVETIRACETAM 500MG/5ML CUP PO SCH ×2 (08:10→21:04)
[2019-11-07] MEDS: POTASSIUM CHLORIDE 20MEQ TABLET SR PO SCH (08:10)
[2019-11-07] MEDS: PANTOPRAZOLE 40MG DR TABLET PO SCH (08:10)
[2019-11-07] MEDS: METOCLOPRAMIDE 10MG/10 ML UDC PO SCH ×4 (08:10→21:04)
[2019-11-07 12:00] VITALS: BP 100/73
[2019-11-07 16:00] VITALS: BP 108/76
[2019-11-07 20:00] VITALS: BP 118/74
[2019-11-08] MEDS: DILTIAZEM HCL 90MG TABLET GT SCH ×3 (06:03→17:59)
[2019-11-08] MEDS: CLONIDINE 0.1MG TABLET PO SCH ×3 (06:04→21:27)
[2019-11-08] MEDS: PHENYTOIN SODIUM 100MG/2ML VIAL IV SCH (06:09)
[2019-11-08 08:00] VITALS: BP 176/66
[2019-11-08] MEDS: METOCLOPRAMIDE 10MG/10 ML UDC PO SCH ×4 (08:14→21:26)
[2019-11-08] MEDS: ACETAMINOPHEN 650MG/20.3ML UDC PO PRN ×2 (08:32→11:46)
[2019-11-08] MEDS: POTASSIUM CHLORIDE 20MEQ TABLET SR PO SCH (09:36)
[2019-11-08] MEDS: LEVETIRACETAM 500MG/5ML CUP PO SCH ×2 (09:36→21:26)
[2019-11-08] MEDS: PANTOPRAZOLE 40MG DR TABLET PO SCH (11:01)
[2019-11-08 12:00] VITALS: BP 130/59
[2019-11-08] MEDS: PHENYTOIN 100 MG/4 ML UDC NG SCH ×2 (14:24→21:27)
[2019-11-08 15:56] VITALS: BP 113/62
[2019-11-08 20:00] VITALS: BP 106/70
[2019-11-09] MEDS: DILTIAZEM HCL 90MG TABLET GT SCH ×5 (02:00→23:26)
[2019-11-09] MEDS: PHENYTOIN 100 MG/4 ML UDC NG SCH ×3 (05:42→21:10)
[2019-11-09] MEDS: CLONIDINE 0.1MG TABLET PO SCH ×3 (05:43→21:10)
[2019-11-09 08:00] VITALS: BP 113/69
[2019-11-09] MEDS: LEVETIRACETAM 500MG/5ML CUP PO SCH ×2 (09:45→21:00)
[2019-11-09] MEDS: PANTOPRAZOLE 40MG DR TABLET PO SCH (09:45)
[2019-11-09] MEDS: POTASSIUM CHLORIDE 20MEQ TABLET SR PO SCH (09:45)
[2019-11-09] MEDS: METOCLOPRAMIDE 10MG/10 ML UDC PO SCH ×4 (09:45→21:00)
[2019-11-09 11:58] VITALS: BP 117/85
[2019-11-09 16:00] VITALS: BP 108/70
[2019-11-09 20:00] VITALS: BP 121/49
[2019-11-10] VITALS (9 sets, daily range): BP systolic 91–159; BP diastolic 53–93
[2019-11-10] MEDS: PHENYTOIN 100 MG/4 ML UDC NG SCH ×3 (05:09→21:48)
[2019-11-10] MEDS: CLONIDINE 0.1MG TABLET PO SCH ×3 (05:11→21:48)
[2019-11-10] MEDS: DILTIAZEM HCL 90MG TABLET GT SCH ×3 (05:12→17:41)
[2019-11-10] MEDS: METOCLOPRAMIDE 10MG/10 ML UDC PO SCH (07:49)
[2019-11-10] MEDS: POTASSIUM CHLORIDE 20MEQ TABLET SR PO SCH (08:06)
[2019-11-10] MEDS: LEVETIRACETAM 500MG/5ML CUP PO SCH ×2 (08:06→21:48)
[2019-11-10] MEDS: FAMOTIDINE 20MG TABLET PO SCH ×2 (08:11→21:48)
[2019-11-11] VITALS: BP 104/69
[2019-11-11 04:00] VITALS: BP 102/70
[2019-11-11] MEDS: PHENYTOIN 100 MG/4 ML UDC NG SCH ×3 (05:20→21:51)
[2019-11-11] MEDS: DILTIAZEM HCL 90MG TABLET GT SCH ×5 (05:21→23:30)
[2019-11-11] MEDS: CLONIDINE 0.1MG TABLET PO SCH ×3 (05:21→21:51)
[2019-11-11 06:23] LABS: BASOPHILS % 2.1 % (0.0-2.0); EOSINOPHILS % 5.2 % (0.0-5.0); HEMATOCRIT. 36.2 % (36.0-48.0); HEMOGLOBIN. 12.3 g/dL (12.0-16.0); MEAN CORPUSCULAR HEMOGLOBIN 29.5 pg (28.0-32.0); MEAN CORPUSCULAR VOLUME 86.7 fL (81.0-99.0); MEAN PLATELET VOLUME 6.9 fl (7.4-10.4); MONOCYTES % 8.5 % (2.0-8.0); NEUTROPHILS % 67.2 % (40.0-76.0); PLATELET 499 x1000/uL (130-400); RED BLOOD CELL COUNT 4.18 mill/uL (4.2-5.4); RED CELL DISTRIBUTION WIDTH 16.9 % (11.6-14.6)
[2019-11-11 07:18] LABS: CHLORIDE 106 mEq/L (98-107)
[2019-11-11 08:00] VITALS: BP 112/57
[2019-11-11] MEDS: POTASSIUM CHLORIDE 20MEQ TABLET SR PO SCH (09:11)
[2019-11-11] MEDS: FAMOTIDINE 20MG TABLET PO SCH ×2 (09:11→20:54)
[2019-11-11] MEDS: LEVETIRACETAM 500MG/5ML CUP PO SCH ×2 (09:12→20:54)
[2019-11-11 12:00] VITALS: BP 117/84
[2019-11-11] MEDS: NYSTATIN 100,000 UNITS/ML 5ML UDC SSW SCH ×3 (12:50→23:30)
[2019-11-11] MEDS: METOCLOPRAMIDE HCL 10MG/2ML VIAL IV SCH ×3 (15:09→23:33)
[2019-11-11 16:00] VITALS: BP 132/72
[2019-11-11 20:00] VITALS: BP 126/83
[2019-11-12] VITALS: BP 103/71
[2019-11-12 04:00] VITALS: BP 111/70
[2019-11-12] MEDS: METOCLOPRAMIDE HCL 10MG/2ML VIAL IV SCH ×4 (05:13→23:56)
[2019-11-12] MEDS: DILTIAZEM HCL 90MG TABLET GT SCH ×4 (05:15→23:57)
[2019-11-12] MEDS: PHENYTOIN 100 MG/4 ML UDC NG SCH ×3 (05:15→21:02)
[2019-11-12] MEDS: NYSTATIN 100,000 UNITS/ML 5ML UDC SSW SCH ×4 (05:15→23:56)
[2019-11-12] MEDS: CLONIDINE 0.1MG TABLET PO SCH ×3 (05:16→21:02)
[2019-11-12 08:00] VITALS: BP 106/70
[2019-11-12] MEDS: LEVETIRACETAM 500MG/5ML CUP PO SCH ×2 (10:51→20:48)
[2019-11-12] MEDS: FAMOTIDINE 20MG TABLET PO SCH ×2 (10:51→20:48)
[2019-11-12] MEDS: POTASSIUM CHLORIDE 20MEQ TABLET SR PO SCH (10:51)
[2019-11-12 12:00] VITALS: BP 106/78
[2019-11-12 16:00] VITALS: BP 103/66
[2019-11-12 20:00] VITALS: BP 118/64
[2019-11-13] VITALS: BP 110/68
[2019-11-13 03:43] VITALS: BP 104/67
[2019-11-13] MEDS: PHENYTOIN 100 MG/4 ML UDC NG SCH ×3 (05:42→21:35)
[2019-11-13] MEDS: METOCLOPRAMIDE HCL 10MG/2ML VIAL IV SCH ×3 (05:43→17:20)
[2019-11-13] MEDS: NYSTATIN 100,000 UNITS/ML 5ML UDC SSW SCH ×3 (05:43→17:20)
[2019-11-13] MEDS: DILTIAZEM HCL 90MG TABLET GT SCH ×3 (05:47→17:23)
[2019-11-13] MEDS: CLONIDINE 0.1MG TABLET PO SCH ×3 (05:47→21:35)
[2019-11-13 08:00] VITALS: BP 89/54
[2019-11-13] MEDS: FAMOTIDINE 20MG TABLET PO SCH ×2 (09:08→21:35)
[2019-11-13] MEDS: POTASSIUM CHLORIDE 20MEQ TABLET SR PO SCH (09:09)
[2019-11-13] MEDS: LEVETIRACETAM 500MG/5ML CUP PO SCH ×2 (09:09→21:35)
[2019-11-13 11:36] VITALS: BP 105/67
[2019-11-13 15:50] VITALS: BP 95/65
[2019-11-13 20:00] VITALS: BP 128/81
[2019-11-14] VITALS: BP 119/71
[2019-11-14] MEDS: DILTIAZEM HCL 90MG TABLET GT SCH ×4 (00:48→18:15)
[2019-11-14] MEDS: NYSTATIN 100,000 UNITS/ML 5ML UDC SSW SCH ×4 (00:48→18:14)
[2019-11-14] MEDS: METOCLOPRAMIDE HCL 10MG/2ML VIAL IV SCH ×4 (00:48→18:15)
[2019-11-14 04:00] VITALS: BP 138/73
[2019-11-14] MEDS: CLONIDINE 0.1MG TABLET PO SCH ×3 (06:14→22:55)
[2019-11-14] MEDS: PHENYTOIN 100 MG/4 ML UDC NG SCH ×3 (06:14→22:55)
[2019-11-14 08:00] VITALS: BP 108/70
[2019-11-14] MEDS: FAMOTIDINE 20MG TABLET PO SCH ×2 (10:38→22:55)
[2019-11-14] MEDS: POTASSIUM CHLORIDE 20MEQ TABLET SR PO SCH (10:38)
[2019-11-14] MEDS: LEVETIRACETAM 500MG/5ML CUP PO SCH ×2 (10:38→22:55)
[2019-11-14 12:00] VITALS: BP 115/75
[2019-11-14 16:00] VITALS: BP 113/54
[2019-11-15] MEDS: METOCLOPRAMIDE HCL 10MG/2ML VIAL IV SCH ×4 (00:23→17:39)
[2019-11-15] MEDS: NYSTATIN 100,000 UNITS/ML 5ML UDC SSW SCH ×4 (00:23→17:39)
[2019-11-15] MEDS: DILTIAZEM HCL 90MG TABLET GT SCH ×4 (00:24→17:34)
[2019-11-15] MEDS: CLONIDINE 0.1MG TABLET PO SCH ×3 (05:42→22:06)
[2019-11-15] MEDS: PHENYTOIN 100 MG/4 ML UDC NG SCH ×3 (05:42→21:53)
[2019-11-15 08:00] VITALS: BP 118/53
[2019-11-15] MEDS: POTASSIUM CHLORIDE 20MEQ TABLET SR PO SCH ×2 (09:00→14:08)
[2019-11-15] MEDS: LEVETIRACETAM 500MG/5ML CUP PO SCH ×2 (09:36→21:53)
[2019-11-15] MEDS: FAMOTIDINE 20MG TABLET PO SCH ×2 (09:36→21:52)
[2019-11-15 12:00] VITALS: BP 107/72
[2019-11-15 16:00] VITALS: BP 104/62
[2019-11-15 20:00] VITALS: BP 118/82
[2019-11-16] VITALS: BP 112/57
[2019-11-16] MEDS: NYSTATIN 100,000 UNITS/ML 5ML UDC SSW SCH ×4 (00:22→18:00)
[2019-11-16] MEDS: ACETAMINOPHEN 650MG/20.3ML UDC PO PRN (00:22)
[2019-11-16] MEDS: METOCLOPRAMIDE HCL 10MG/2ML VIAL IV SCH ×4 (00:22→18:00)
[2019-11-16] MEDS: DILTIAZEM HCL 90MG TABLET GT SCH ×4 (00:30→18:00)
[2019-11-16 04:00] VITALS: BP 106/67
[2019-11-16] MEDS: CLONIDINE 0.1MG TABLET PO SCH ×3 (06:00→21:16)
[2019-11-16] MEDS: PHENYTOIN 100 MG/4 ML UDC NG SCH ×3 (06:39→21:16)
[2019-11-16] MEDS: LEVETIRACETAM 500MG/5ML CUP PO SCH ×2 (09:15→21:16)
[2019-11-16] MEDS: POTASSIUM CHLORIDE 20MEQ TABLET SR PO SCH (09:16)
[2019-11-16] MEDS: ASCORBIC ACID 500 MG TABLET GT SCH (09:16)
[2019-11-16] MEDS: ZINC SULFATE 220 MG ( 50 ) CAPSULE GT SCH (09:16)
[2019-11-16] MEDS: FAMOTIDINE 20MG TABLET PO SCH ×2 (09:16→21:16)
[2019-11-16 20:00] VITALS: BP 113/65
[2019-11-17] VITALS: BP 106/63
[2019-11-17] MEDS: METOCLOPRAMIDE HCL 10MG/2ML VIAL IV SCH ×4 (00:11→17:06)
[2019-11-17 04:00] VITALS: BP 110/72
[2019-11-17] MEDS: CLONIDINE 0.1MG TABLET PO SCH ×3 (05:28→21:22)
[2019-11-17] MEDS: NYSTATIN 100,000 UNITS/ML 5ML UDC SSW SCH ×4 (05:29→17:06)
[2019-11-17] MEDS: PHENYTOIN 100 MG/4 ML UDC NG SCH ×3 (05:29→21:14)
[2019-11-17] MEDS: DILTIAZEM HCL 90MG TABLET GT SCH ×4 (05:29→17:07)
[2019-11-17 08:00] VITALS: BP 110/46
[2019-11-17] MEDS: POTASSIUM CHLORIDE 20MEQ TABLET SR PO SCH (09:04)
[2019-11-17] MEDS: ASCORBIC ACID 500 MG TABLET GT SCH (09:04)
[2019-11-17] MEDS: ZINC SULFATE 220 MG ( 50 ) CAPSULE GT SCH (09:04)
[2019-11-17] MEDS: FAMOTIDINE 20MG TABLET PO SCH ×2 (09:04→21:14)
[2019-11-17] MEDS: LEVETIRACETAM 500MG/5ML CUP PO SCH ×2 (09:05→21:21)
[2019-11-17 12:00] VITALS: BP 133/65
[2019-11-17 16:00] VITALS: BP 120/69
[2019-11-17 20:00] VITALS: BP 96/63
[2019-11-18] VITALS: BP 117/67
[2019-11-18] MEDS: METOCLOPRAMIDE HCL 10MG/2ML VIAL IV SCH ×4 (00:47→17:21)
[2019-11-18] MEDS: DILTIAZEM HCL 90MG TABLET GT SCH ×4 (00:48→17:22)
[2019-11-18] MEDS: NYSTATIN 100,000 UNITS/ML 5ML UDC SSW SCH ×3 (00:54→12:00)
[2019-11-18 04:00] VITALS: BP 101/64
[2019-11-18] MEDS: CLONIDINE 0.1MG TABLET PO SCH ×3 (05:42→21:37)
[2019-11-18] MEDS: PHENYTOIN 100 MG/4 ML UDC NG SCH ×3 (05:45→21:36)
[2019-11-18 08:00] VITALS: BP 110/52
[2019-11-18] MEDS: POTASSIUM CHLORIDE 20MEQ TABLET SR PO SCH (08:59)
[2019-11-18] MEDS: ASCORBIC ACID 500 MG TABLET GT SCH (08:59)
[2019-11-18] MEDS: ZINC SULFATE 220 MG ( 50 ) CAPSULE GT SCH (08:59)
[2019-11-18] MEDS: LEVETIRACETAM 500MG/5ML CUP PO SCH ×2 (09:00→21:36)
[2019-11-18] MEDS: FAMOTIDINE 20MG TABLET PO SCH ×2 (09:02→21:36)
[2019-11-18 12:00] VITALS: BP 159/60
[2019-11-18 16:00] VITALS: BP 117/65
[2019-11-18 20:00] VITALS: BP 149/60
[2019-11-19] VITALS: BP 99/61
[2019-11-19] MEDS: METOCLOPRAMIDE HCL 10MG/2ML VIAL IV SCH ×4 (00:50→18:21)
[2019-11-19 04:00] VITALS: BP 121/73
[2019-11-19] MEDS: DILTIAZEM HCL 90MG TABLET GT SCH ×4 (05:51→18:21)
[2019-11-19] MEDS: PHENYTOIN 100 MG/4 ML UDC NG SCH ×3 (05:51→21:25)
[2019-11-19] MEDS: CLONIDINE 0.1MG TABLET PO SCH ×3 (05:52→21:25)
[2019-11-19 06:22] LABS: BASOPHILS % 1.4 % (0.0-2.0); EOSINOPHILS % 6.6 % (0.0-5.0); HEMATOCRIT. 34.4 % (36.0-48.0); HEMOGLOBIN. 11.6 g/dL (12.0-16.0); LYMPHOCYTES % 19.9 % (20.0-50.0); MEAN CORPUSCULAR VOLUME 88.7 fL (81.0-99.0); MEAN PLATELET VOLUME 7.4 fl (7.4-10.4); MONOCYTES % 10.2 % (2.0-8.0); NEUTROPHILS % 61.9 % (40.0-76.0); PLATELET 437 x1000/uL (130-400); RED BLOOD CELL COUNT 3.88 mill/uL (4.2-5.4); RED CELL DISTRIBUTION WIDTH 16.4 % (11.6-14.6)
[2019-11-19 08:00] VITALS: BP 102/68
[2019-11-19] MEDS: LEVETIRACETAM 500MG/5ML CUP PO SCH ×2 (09:00→21:25)
[2019-11-19] MEDS: POTASSIUM CHLORIDE 20MEQ TABLET SR PO SCH (09:00)
[2019-11-19] MEDS: ASCORBIC ACID 500 MG TABLET GT SCH (09:00)
[2019-11-19] MEDS: FAMOTIDINE 20MG TABLET PO SCH ×2 (09:00→21:24)
[2019-11-19] MEDS: ZINC SULFATE 220 MG ( 50 ) CAPSULE GT SCH (09:00)
[2019-11-19 12:00] VITALS: BP 107/58
[2019-11-19 20:00] VITALS: BP 115/62
[2019-11-20] VITALS: BP 104/66
[2019-11-20] MEDS: METOCLOPRAMIDE HCL 10MG/2ML VIAL IV SCH ×5 (00:22→23:43)
[2019-11-20 04:00] VITALS: BP 106/68
[2019-11-20] MEDS: DILTIAZEM HCL 90MG TABLET GT SCH ×5 (06:00→23:43)
[2019-11-20] MEDS: CLONIDINE 0.1MG TABLET PO SCH ×2 (06:00→13:09)
[2019-11-20] MEDS: PHENYTOIN 100 MG/4 ML UDC NG SCH ×3 (06:10→21:22)
[2019-11-20 08:00] VITALS: BP 133/55
[2019-11-20] MEDS: ZINC SULFATE 220 MG ( 50 ) CAPSULE GT SCH (08:26)
[2019-11-20] MEDS: LEVETIRACETAM 500MG/5ML CUP PO SCH ×2 (08:26→21:22)
[2019-11-20] MEDS: ASCORBIC ACID 500 MG TABLET GT SCH (08:26)
[2019-11-20] MEDS: POTASSIUM CHLORIDE 20MEQ TABLET SR PO SCH (08:26)
[2019-11-20] MEDS: FAMOTIDINE 20MG TABLET PO SCH ×2 (08:26→21:22)
[2019-11-20 12:00] VITALS: BP 107/54
[2019-11-20 16:00] VITALS: BP 113/70
[2019-11-20 20:00] VITALS: BP 121/64
[2019-11-21 04:00] VITALS: BP 116/61
[2019-11-21] MEDS: DILTIAZEM HCL 90MG TABLET GT SCH ×3 (05:21→17:33)
[2019-11-21] MEDS: METOCLOPRAMIDE HCL 10MG/2ML VIAL IV SCH ×3 (05:21→17:32)
[2019-11-21] MEDS: PHENYTOIN 100 MG/4 ML UDC NG SCH ×3 (05:52→22:21)
[2019-11-21 08:00] VITALS: BP 112/71
[2019-11-21] MEDS: ZINC SULFATE 220 MG ( 50 ) CAPSULE GT SCH (08:50)
[2019-11-21] MEDS: POTASSIUM CHLORIDE 20MEQ TABLET SR PO SCH (08:50)
[2019-11-21] MEDS: ASCORBIC ACID 500 MG TABLET GT SCH (08:50)
[2019-11-21] MEDS: LEVETIRACETAM 500MG/5ML CUP PO SCH ×2 (08:50→20:58)
[2019-11-21] MEDS: FAMOTIDINE 20MG TABLET PO SCH ×2 (08:50→20:58)
[2019-11-21 12:00] VITALS: BP 118/74
[2019-11-21 16:00] VITALS: BP 114/68
[2019-11-21 20:00] VITALS: BP 141/69
[2019-11-22] VITALS: BP 140/65
[2019-11-22] MEDS: DILTIAZEM HCL 90MG TABLET GT SCH ×4 (00:22→17:04)
[2019-11-22] MEDS: METOCLOPRAMIDE HCL 10MG/2ML VIAL IV SCH ×4 (00:26→17:04)
[2019-11-22 04:00] VITALS: BP 100/74
[2019-11-22] MEDS: PHENYTOIN 100 MG/4 ML UDC NG SCH ×3 (06:42→21:34)
[2019-11-22 08:00] VITALS: BP 133/74
[2019-11-22] MEDS: POTASSIUM CHLORIDE 20MEQ TABLET SR PO SCH (08:44)
[2019-11-22] MEDS: FAMOTIDINE 20MG TABLET PO SCH ×2 (08:44→21:34)
[2019-11-22] MEDS: ZINC SULFATE 220 MG ( 50 ) CAPSULE GT SCH (08:44)
[2019-11-22] MEDS: LEVETIRACETAM 500MG/5ML CUP PO SCH ×2 (08:44→21:33)
[2019-11-22] MEDS: ASCORBIC ACID 500 MG TABLET GT SCH (08:44)
[2019-11-22 12:00] VITALS: BP 127/53
[2019-11-22 16:00] VITALS: BP 158/68
[2019-11-22 20:00] VITALS: BP 116/61
[2019-11-23] VITALS: BP 127/80
[2019-11-23] MEDS: METOCLOPRAMIDE HCL 10MG/2ML VIAL IV SCH ×4 (00:02→18:49)
[2019-11-23] MEDS: DILTIAZEM HCL 90MG TABLET GT SCH ×4 (00:02→18:49)
[2019-11-23 04:00] VITALS: BP 122/71
[2019-11-23] MEDS: PHENYTOIN 100 MG/4 ML UDC NG SCH ×3 (05:32→21:36)
[2019-11-23 08:00] VITALS: BP 123/52
[2019-11-23] MEDS: FAMOTIDINE 20MG TABLET PO SCH ×2 (08:36→21:36)
[2019-11-23] MEDS: POTASSIUM CHLORIDE 20MEQ TABLET SR PO SCH (08:37)
[2019-11-23] MEDS: ASCORBIC ACID 500 MG TABLET GT SCH (08:37)
[2019-11-23] MEDS: ZINC SULFATE 220 MG ( 50 ) CAPSULE GT SCH (08:37)
[2019-11-23] MEDS: LEVETIRACETAM 500MG/5ML CUP PO SCH ×2 (10:00→21:35)
[2019-11-23 12:00] VITALS: BP 128/68
[2019-11-23 16:00] VITALS: BP 123/87
[2019-11-23 20:00] VITALS: BP 137/78
[2019-11-24] VITALS: BP 130/65
[2019-11-24] MEDS: DILTIAZEM HCL 90MG TABLET GT SCH ×5 (00:49→23:29)
[2019-11-24] MEDS: METOCLOPRAMIDE HCL 10MG/2ML VIAL IV SCH ×5 (00:49→23:30)
[2019-11-24 04:00] VITALS: BP 149/56
[2019-11-24] MEDS: PHENYTOIN 100 MG/4 ML UDC NG SCH ×3 (05:57→23:29)
[2019-11-24 08:00] VITALS: BP 103/58
[2019-11-24] MEDS: LEVETIRACETAM 500MG/5ML CUP PO SCH ×2 (10:06→20:23)
[2019-11-24] MEDS: ZINC SULFATE 220 MG ( 50 ) CAPSULE GT SCH (10:11)
[2019-11-24] MEDS: POTASSIUM CHLORIDE 20MEQ TABLET SR PO SCH (10:11)
[2019-11-24] MEDS: FAMOTIDINE 20MG TABLET PO SCH ×2 (10:17→20:23)
[2019-11-24] MEDS: ASCORBIC ACID 500 MG TABLET GT SCH (10:17)
[2019-11-24 12:00] VITALS: BP 120/69
[2019-11-24 16:00] VITALS: BP 106/59
[2019-11-24 20:00] VITALS: BP 117/69
[2019-11-25] VITALS: BP 114/68
[2019-11-25 04:00] VITALS: BP 111/57
[2019-11-25] MEDS: METOCLOPRAMIDE HCL 10MG/2ML VIAL IV SCH ×3 (05:36→18:40)
[2019-11-25] MEDS: PHENYTOIN 100 MG/4 ML UDC NG SCH ×3 (05:36→21:32)
[2019-11-25] MEDS: DILTIAZEM HCL 90MG TABLET GT SCH ×3 (05:36→18:40)
[2019-11-25] MEDS: ASCORBIC ACID 500 MG TABLET GT SCH (09:00)
[2019-11-25] MEDS: POTASSIUM CHLORIDE 20MEQ TABLET SR PO SCH (09:16)
[2019-11-25] MEDS: ZINC SULFATE 220 MG ( 50 ) CAPSULE GT SCH (09:16)
[2019-11-25] MEDS: LEVETIRACETAM 500MG/5ML CUP PO SCH ×2 (09:16→21:32)
[2019-11-25] MEDS: FAMOTIDINE 20MG TABLET PO SCH ×2 (09:16→21:31)
[2019-11-25 20:12] VITALS: BP 108/67
[2019-11-26] VITALS: BP 116/73
[2019-11-26] MEDS: METOCLOPRAMIDE HCL 10MG/2ML VIAL IV SCH ×4 (00:25→17:22)
[2019-11-26] MEDS: DILTIAZEM HCL 90MG TABLET GT SCH ×2 (00:26→06:43)
[2019-11-26 04:00] VITALS: BP 114/58
[2019-11-26] MEDS: PHENYTOIN 100 MG/4 ML UDC NG SCH ×3 (06:42→21:39)
[2019-11-26] MEDS: ZINC SULFATE 220 MG ( 50 ) CAPSULE GT SCH (08:36)
[2019-11-26] MEDS: LEVETIRACETAM 500MG/5ML CUP PO SCH ×2 (08:36→21:17)
[2019-11-26] MEDS: ASCORBIC ACID 500 MG TABLET GT SCH (08:36)
[2019-11-26] MEDS: FAMOTIDINE 20MG TABLET PO SCH ×2 (08:36→21:17)
[2019-11-26 19:53] VITALS: BP 109/64
[2019-11-27] VITALS: BP 114/66
[2019-11-27] MEDS: METOCLOPRAMIDE HCL 10MG/2ML VIAL IV SCH ×2 (00:52→05:30)
[2019-11-27 04:00] VITALS: BP 125/71
[2019-11-27] MEDS: PHENYTOIN 100 MG/4 ML UDC NG SCH (05:30)
[2019-11-27 08:00] VITALS: BP 128/80
[2019-11-27] MEDS: ZINC SULFATE 220 MG ( 50 ) CAPSULE GT SCH (08:33)
[2019-11-27] MEDS: LEVETIRACETAM 500MG/5ML CUP PO SCH (08:33)
[2019-11-27] MEDS: ASCORBIC ACID 500 MG TABLET GT SCH (08:33)
[2019-11-27] MEDS: FAMOTIDINE 20MG TABLET PO SCH (08:34)
[2019-11-27] MEDS ORDERED: ATOR40TA70 MT (09:26)
[2019-11-27] MEDS ORDERED: PHEN100O2 NG (09:26)
[2019-11-27] MEDS ORDERED: KEPPSOL PO (09:26)
[2019-11-27 09:41] VITALS: BP 128/80
== END 2019-11-27 10:10 | disposition home health service (06) | DRG 21 ==
LOC: ER 11:58 → 5WST 13:40 → ENRESERV 21:04 → MICUNO 10-11 18:03 → 5EST 10-24 13:07 → 6EST 11-15 18:40
PROVIDERS: ADMIT Internal Medicine; ATTEND Internal Medicine
PROC: 4A10X4Z Monitoring of Central Nervous Electrical Activity, External Approach (ICD-10-PCS; 2019-10-12)
PROC: 009630Z Drainage of Cerebral Ventricle with Drainage Device, Percutaneous Approach (ICD-10-PCS; 2019-10-12)
PROC: 02HV33Z Insertion of Infusion Device into Superior Vena Cava, Percutaneous Approach (ICD-10-PCS; 2019-10-13)
PROC: B548ZZA Ultrasonography of Superior Vena Cava, Guidance (ICD-10-PCS; 2019-10-13)
PROC: 4A103BD Monitoring of Intracranial Pressure, Percutaneous Approach (ICD-10-PCS; principal; 2019-10-14)
PROC: 00H632Z Insertion of Monitoring Device into Cerebral Ventricle, Percutaneous Approach (ICD-10-PCS; 2019-10-14)
PROC: 00163J6 Bypass Cerebral Ventricle to Peritoneal Cavity with Synthetic Substitute, Percutaneous Approach (ICD-10-PCS; 2019-10-14)
PROC: 009600Z Drainage of Cerebral Ventricle with Drainage Device, Open Approach (ICD-10-PCS; 2019-10-14)
PROC: 00P60JZ Removal of Synthetic Substitute from Cerebral Ventricle, Open Approach (ICD-10-PCS; 2019-10-14)
PROC: 0DH63UZ Insertion of Feeding Device into Stomach, Percutaneous Approach (ICD-10-PCS; 2019-10-26)
PROC: 0DB78ZX Excision of Stomach, Pylorus, Via Natural or Artificial Opening Endoscopic, Diagnostic (ICD-10-PCS; 2019-10-26)
DX: T85.01XA Breakdown (mechanical) of ventricular intracranial (communicating) shunt, initial encounter (principal); J96.00 Acute respiratory failure, unspecified whether with hypoxia or hypercapnia; I61.5 Nontraumatic intracerebral hemorrhage, intraventricular; G04.2 Bacterial meningoencephalitis and meningomyelitis, not elsewhere classified; A41.9 Sepsis, unspecified organism; E46 Unspecified protein-calorie malnutrition; G40.919 Epilepsy, unspecified, intractable, without status epilepticus; L89.156 Pressure-induced deep tissue damage of sacral region; T85.730A Infection and inflammatory reaction due to ventricular intracranial (communicating) shunt, initial encounter; B37.0 Candidal stomatitis; R13.10 Dysphagia, unspecified; L89.153 Pressure ulcer of sacral region, stage 3; G91.9 Hydrocephalus, unspecified; R73.9 Hyperglycemia, unspecified; N39.0 Urinary tract infection, site not specified; E87.6 Hypokalemia; Y90.0 Blood alcohol level of less than 20 mg/100 ml; F19.10 Other psychoactive substance abuse, uncomplicated; I10 Essential (primary) hypertension; F79 Unspecified intellectual disabilities; D64.9 Anemia, unspecified; B96.4 Proteus (mirabilis) (morganii) as the cause of diseases classified elsewhere; E87.0 Hyperosmolality and hypernatremia; K29.50 Unspecified chronic gastritis without bleeding; Y83.1 Surgical operation with implant of artificial internal device as the cause of abnormal reaction of the patient, or of later complication, without mention of misadventure at the time of the procedure; Y92.89 Other specified places as the place of occurrence of the external cause; Z78.1 Physical restraint status; Q02 Microcephaly; Z74.01 Bed confinement status; Z68.22 Body mass index [BMI] 22.0-22.9, adult; Z86.79 Personal history of other diseases of the circulatory system; I82.612 Acute embolism and thrombosis of superficial veins of left upper extremity; N17.9 Acute kidney failure, unspecified
CPT/HCPCS: 36415; 36573; 36600; 70544; 70553; 71045; 72040; 74018; 74176; 76770; 80048; 80053; 80061; 80156; 80165; 80184; 80185; 80202; 80305; 80320; 81003; 82040; 82043; 82375; 82436; 82570; 82575; 82728; 82805; 82945; 82962; 83036; 83540; 83550; 83735; 83930; 83935; 84100; 84132; 84133; 84134; 84156; 84157; 84300; 84443; 85025; 85379; 87070; 87075; 87077; 87186; 88305; 88313; 90686; 90732; 92610; 93005; 93306; 93970; 93971; 94640; 99285; C1725; C9113; J0690; J0696; J1165; J1650; J1953; J2060; J2250; J2270; J2310; J2370; J2405; J2543; J2704; J2710; J2765; J3010; J3370; J3480; J3490; J7050; J7060; J7121; J8597; L0172; G0480